=== PATIENT | female | born 1945 | race Caucasian/White ===

== ENCOUNTER 2017-05-24 06:01 | Inpatient (IN) ==
[2017-05-24] MEDS ORDERED: Aspirin 81 MG TAB.CHEW PO ONE (06:06)
--- NOTE | 2017-05-24 06:14 | Emergency Department Note ---
Disposition Clinical Impression: Confusion Disposition: Still a Patient Condition: Good Forms: ED Satisfaction Letter Time of Disposition: 07:14 Neuro HPI - General Chief Complaint: ED Neuro Symptoms/Deficit Stated Complaint: Possible TIA/Stroke Time Seen by Provider: 05/24/17 06:06 Source: patient, EMS Mode of arrival: EMS Limitations: no limitations Nursing Notes Reviewed: Yes Vital Signs Reviewed: Yes - History of Present Illness HPI Narrative: 71-year-old female presents to the ED for left-sided facial droop and confusion. EMS states has been said she was last known normal at 3:00 yesterday evening when she started acting a little confused after that. They noticed that she did have a little bit of facial droop at that time. She has had a history of having TIAs and then normally causes of facial droop. She is a type II diabetic and states that she is not taking her medications normally. EMS did say that her sugar was 546 upon arrival. stated that she woke up confused, wondering where she is at not acting normal and now is when he called EMS to come pick her up. She is complaining of no nausea or vomiting, headaches, blurry vision. She is complaining of back pain which is chronic for her. no abdominal pain or changes in bowel or bladder. She has no pain or tingling going down the arms or legs. No other complaints at this time. - Related Data Home Medications: Home Medications Medication Instructions Recorded Confirmed Bisoprolol Fumarate 07/07/15 Sachin Correia 12,000 Units Capsule 07/07/15 Gabapentin 07/07/15 Januvia 07/07/15 Levothyroxine 07/07/15 Losartan 07/07/15 Omeprazole 07/07/15 Plavix 07/07/15 Pramipexole 07/07/15 Pravastatin Sodium 07/07/15 TraMADol 07/07/15 Vitamin D 07/07/15 Previous Rx's Medication Instructions Recorded Hydrocodone/Acetaminophen [[place] 1 each PO Q4H PRN #10 tablet 09/15/15 5-325 Tablet] Ondansetron HCl [Zofran] 4 mg PO Q8HR #14 tablet 09/30/16 Azithromycin [Azithromycin 6-Tab 250 mg PO PER PKG DI #6 tab 04/12/17 Pack] Allergies/Adverse Reactions: Allergies Allergy/AdvReac Type Severity Reaction Status Date / Time simvastatin Allergy Itching Verified 05/24/17 06:02 Sulfa (Sulfonamide Allergy Rash Verified 05/24/17 06:02 Antibiotics) brimonidine [From Alphagan P] AdvReac Blurry Verified 05/24/17 06:02 Vision lisinopril [From Prinivil] AdvReac Cough Verified 05/24/17 06:02 Topical Iodine Allergy Rash Uncoded 05/24/17 06:02 Review of Systems: 10 point review of systems done and negative unless otherwise stated in history of present illness. All systems ED: reviewed and negative except as stated. Review of Systems: As Per HPI Past Medical History - Past Medical History Attestation: Yes The following information was validated with the patient. Medical history: Reports: other Surgical history: Reports: orthopedic, other (spinal surgery Mar, 2015; right foot surgery ) Psychiatric history: Reports: no psych history TYPIST history: Reports: no TYPIST history - Social History Smoking Status: Never smoker Smokeless Tobacco Status: No Alcohol use: Reports: none Drug use: Reports: none Physical Exam - General Limitations: no limitations General appearance: alert - Head Head exam: atraumatic, normocephalic, normal inspection - Eye Eye exam: Present: normal appearance, PERRL, EOMI - ENT ENT exam: normal exam, normal oropharynx, mucous membranes moist - Neck Neck exam: Present: normal inspection, full ROM, trachea midline - Chest Chest inspection: Present: normal inspection, symmetric chest wall rise - Respiratory Respiratory exam: Present: normal lung sounds bilaterally - Cardiovascular Cardiovascular exam: Present: regular rate, normal rhythm, normal heart sounds - Abdominal Exam Abdominal exam: Present: soft, Non-Tender. Absent: tenderness, distention, guarding, rebound, rigidity - Back Exam Back exam: Present: normal inspection. Absent: tenderness - Neurological Exam Neurological exam: Present: alert - Expanded Neurological Exam Patient oriented to: Absent: person, place, time Speech: Present: fluid speech Motor strength - LUE: 5/5 Motor strength - RUE: 3/5 Motor strength - LLE: 5/5 Motor strength - RLE: 5/5 Sensory exam upper extremity: light touch: Normal Sensory exam lower extremity: light touch: Normal Coma Scale Eye Opening: Spontaneous Coma Scale Motor Response: Localizes to Pain Coma Scale Verbal Response: Confused Coma Scale Total: 13 - Psychiatric Psychiatric exam: Present: normal affect, normal mood - Skin Skin exam: Present: warm, dry, intact, normal color Course Course Narrative: 71-year-old female here from home via EMS for strokelike symptoms. Her last known normal was 3:00 yesterday afternoon and she woke up feeling confused so there is no timeframe that we can call a stroke alert. We will do all the stroke workup including CT of her head, CBC, CMP, blood glucose. A urinalysis on her. We had chest x-ray as well as troponin. We did EKG. Would not have an IV placed. Patient most likely than be admitted for further evaluation. Vital Signs Temperature 98.0 F 05/24/17 06:02 Pulse Rate 73 05/24/17 06:02 Respiratory Rate 20 05/24/17 06:02 Blood Pressure 140/85 05/24/17 06:02 O2 Sat by Pulse Oximetry 96 05/24/17 06:02 Temperature 98.0 F 05/24/17 06:02 Pulse Rate 73 05/24/17 06:02 Respiratory Rate 20 05/24/17 06:02 Blood Pressure 140/85 05/24/17 06:02 O2 Sat by Pulse Oximetry 96 05/24/17 06:02 Oxygen Delivery Oxygen Delivery Room Air Neuro Symptoms/Deficit - MDM Narrative Medical decision making narrative: 71-year-old female presented to the ED with strokelike symptoms. Her last normal was 3:00 yesterday afternoon. She woke up with confusion and these symptoms. So there is no known sick time of onset. We did not do a stroke alert. We did though order all the stroke labs including CBC, CMP, coags as well as a CT of her head. We also got a urine and urine drug screen. These are still pending. Patient's NIH was 5. This patient will be signed out to the day team as the labs and CT of not came back yet. NIH Stroke Scale - Level of Consciousness LOC: Alert - LOC Questions LOC Questions: Answers both incorrectly - LOC Commands LOC Commands: Performs both incorrectly - Best Gaze Best Gaze: Normal - Visual Visual: No visual loss - Facial Palsy Facial Palsy: Normal - Motor Arms Motor Arm-Left: No drift for 10 seconds Motor Arm-Right: Drift, does NOT hit bed - Motor Legs Motor Leg-Left: No drift for 5 seconds Motor Leg-Right: No drift for 5 seconds - Limb Ataxia Limb Ataxia: Absent of affected limb too weak to perform exam - Sensory Sensory: Normal - Best Language Best Language: No aphasia - Dysarthria Dysarthria: Normal - Extinction and Inattention Extinction and Inattention: Normal - NIHSS Total Score NIHSS Total Score: 5 TPA Checklist - LKW: 3-4.5 hrs Add. Warnings/Precautions Patient/family understanding: The patient/family members have been counseled and understood the risk, benefit , and alternatives of treatment. Critical Care Time Critical Care Time: Yes Total Critical Care Time: 35 Attestation: Critical care performed: Time is exclusive of separately billable procedures. Time includes: direct patient care, patient reassessment, coordination of patient care, interpretation of data (laboratory data, radiology data, and respiratory data), review of patient's medical records, medical consultation and documentation of patient care. Procedures included in critical care time: Procedures excluded from critical care time: Attestation Statement - Attestation Attestation: I, Gatito Liang DO, examined this patient [id number] and my medical decision-making was reviewed with Dr. Severino Vigil Resident Physician. I agree with the documented findings, disposition and treatment plan as described except to the extent set forth below. Please see my progress notes for details. 71-year-old female presents to emergency room with left-sided facial droop started yesterday afternoon. Patient has a history of TIAs this is similar to her previous TIA presentation. Patient woke up this morning with significant confusion after sleeping for multiple hours. Family is not with her initially. All information is presented by EMS. Vital signs Accu-Chek were all stable during transit. Patient is confused to time and place and is unable to tell us her full name at this point. Neurologically patient follows commands and moves all 4 extremities with purpose she is confused as normal-appearing pupils are equal and reactive to light. She has difficulty with specific motor function testing at this point. Based on timeframe as well as presentation and waking with progression of symptoms patient is on a candidate for acute stroke activation and protocol. Patient will be treated as such. Urinalysis urine drug screen, EKG troponin chest x-ray CT of the head as well as screening laboratory workup be completed at this point. Patient almost 71 admission. Aspirin to be given at this point. Consultation to be had with the family once they arrive. Patient otherwise is resting comfortably in the bed but no specific vital sign abnormalities. Disposition admission. See detailed documentation of physical exam, medical intervention, medical decision-making, critical care and disposition and the resident physician's note. Physical exam is otherwise unremarkable. Lungs are clear heart is regular abdomen is soft no guarding no rigidity. No infectious etiology noted on initial presentation. Patient will be monitored in the emergency room and admission process and treatment course are completed. She will be signed out to the daytime physician for completion of the course of care.
[2017-05-24 07:19] LABS: INR 1.1; Prothrombin Time 12.1 Seconds (9.4-12.1)
[2017-05-24] MEDS ORDERED: *HR* FentaNYL (PF) 100 MCG/2 ML VIAL IVP ONE ×2 (07:19→10:27)
[2017-05-24 07:21] LABS: Activated Partial Thrombo Time 22.6 Seconds (26.0-36.0)
[2017-05-24 07:25] LABS: Eosinophils % 0.2 %; Hemoglobin 13.5 g/dL (11.5-15.4); Mean Platelet Volume 13.3 fL (9.4-12.4); Red Cell Distribution Width 13.2 % (11.5-14.5)
[2017-05-24 07:27] LABS: Basophils # 0.1 K/mcL (0.0-0.2); Basophils % 0.4 %; Hematocrit 37.9 % (35.3-44.9); Immature Granulocytes % 0.5 % (0-4); Immature Platelets 22.9 % (1.1-6.1); Lymphocytes # 3.4 K/mcL (0.6-4.6); Mean Corpuscular HGB Conc 35.6 g/dL (31.6-35.5); Mean Corpuscular Hemoglobin 31.8 pg (28.0-33.3); Mean Corpuscular Volume 89.2 fL (83.0-100.0); Monocytes # 1.2 K/mcL (0.0-1.3); Monocytes % 7.3 %; Neutrophils # 11.5 K/mcL (1.6-8.9); Platelet Count 190 K/mcL (140-400); Red Blood Count 4.25 M/mcL (3.82-4.97); Segmented Neutrophils % 70.6 %
--- NOTE | 2017-05-24 07:41 | Emergency Department Note ---
Disposition Clinical Impression: Confusion, Hyperglycemia, MALIK (acute kidney injury) Disposition: Still a Patient Condition: Good General Adult HPI - General Chief complaint: ED Neuro Symptoms/Deficit Stated complaint: Possible TIA/Stroke Time Seen by Provider: 05/24/17 06:06 Source: patient, EMS Mode of arrival: EMS Limitations: no limitations - History of Present Illness Pain Scale: 0 - Related Data Home Medications Medication Instructions Recorded Confirmed Bisoprolol/HCTZ [Ziac 1 each PO DAILY 05/24/17 05/24/1725] Clopidogrel [Plavix] 75 mg PO DAILY 05/24/17 05/24/17 Dicyclomine [Bentyl] 20 mg PO QID 05/24/17 05/24/17 Gabapentin [Neurontin] 600 mg PO BID 05/24/17 05/24/17 Levothyroxine [Synthroid] 150 mcg PO DAILY 05/24/17 05/24/17 Losartan Potassium [Cozaar] 50 mg PO DAILY 05/24/17 05/24/17 Omeprazole [PriLOSEC] 40 mg PO DAILY 05/24/17 05/24/17 Pramipexole [Mirapex] 0.5 mg PO HS 05/24/17 05/24/17 Pravastatin Sodium [Pravachol] 40 mg PO QPM 05/24/17 05/24/17 SitaGLIPtin [Januvia] 100 mg PO DAILY 05/24/17 05/24/17 Allergies Allergy/AdvReac Type Severity Reaction Status Date / Time simvastatin Allergy Itching Verified 05/24/17 06:02 Sulfa (Sulfonamide Allergy Rash Verified 05/24/17 06:02 Antibiotics) brimonidine [From Alphagan P] AdvReac Blurry Verified 05/24/17 06:02 Vision lisinopril [From Prinivil] AdvReac Cough Verified 05/24/17 06:02 Topical Iodine Allergy Rash Uncoded 05/24/17 06:02 Past Medical History - Past Medical History Medical history: Reports: other Surgical history: Reports: orthopedic, other (spinal surgery Mar, 2015; right foot surgery ) Psychiatric history: Reports: no psych history [employer] history: Reports: no [employer] history - Social History Smoking Status: Never smoker Smokeless Tobacco Status: No Alcohol use: Reports: none Drug use: Reports: none Physical Exam - General Limitations: no limitations General appearance: alert Course Course Narrative: Assumed care for the night team. I was able to speak with the who reports that his has a past medical history of TIA, hypertension, diabetes , chronic low back pain. She also had pancreatic cancer back in the 90s and has completely recovered. He reports that yesterday around noon she started to develop confusion. Her normal baseline is no confusion and she is able to maintain her own activities of daily living. 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 Since yesterday she has been progressively more confused to the point where she does not appropriately answer questions. On my examination she is alert but does not give appropriate answers. She will speak occasionally. She does have some mild abdominal pain on exam swell go ahead and order a CT scan to look for a abdominal etiology. She became substantially more confused as we were continuing the workup in the emergency department. She was trying to climb out of bed and was speaking nonsensically. Trying to pull out IV's. For her safety she required some sedation. I spoke with the hospitalist who recommended ICU due to the substantial sedation that she is needing. I spoke with the ICU attending who agreed to accept the patient. I did call neurology who also agreed to see the patient. They recommended a lumbar puncture the patient was unable to cooperate for this and she has a large scar over the lower lumbar consistent with a fusion. We did empirically start her on acyclovir in case this is caused by herpes encephalitis. Vital Signs Temperature 98.0 F 05/24/17 06:02 Pulse Rate 73 05/24/17 06:02 Respiratory Rate 20 05/24/17 06:02 Blood Pressure 140/85 05/24/17 06:02 O2 Sat by Pulse Oximetry 96 05/24/17 06:02 Temperature 100.5 F H 05/24/17 13:02 Pulse Rate 73 05/24/17 14:00 Respiratory Rate 18 05/24/17 14:00 Blood Pressure 108/51 05/24/17 14:00 O2 Sat by Pulse Oximetry 94 05/24/17 14:00 Oxygen Delivery Oxygen Delivery Nasal Cannula Medical Decision Making - Medical Records Medical records reviewed: Yes I reviewed the patient's medical records. - Lab Data Lab results reviewed: Yes I reviewed the patient's lab results. Result diagrams: 05/24/17 14:08 05/24/17 14:08 Lab Results 05/24/17 05/24/17 05/24/17 Range/Units 07:07 07:22 07:22 WBC 16.3 H (4.3-11.1) K/mcL RBC 4.25 (3.82-4.97) M/mcL Hgb 13.5 (11.5-15.4) g/dL Hct 37.9 (35.3-44.9) % MCV 89.2 (83.0-100.0) fL MCH 31.8 (28.0-33.3) pg MCHC 35.6 H (31.6-35.5) g/dL RDW 13.2 (11.5-14.5) % Plt Count 190 (140-400) K/mcL MPV 13.3 H (9.4-12.4) fL Immature Gran % 0.5 (0-4) % Seg Neutrophils % 70.6 % Lymphocytes % 21.0 % Monocytes % 7.3 % Eosinophils % 0.2 % Basophils % 0.4 % Neutrophils # 11.5 H (1.6-8.9) K/mcL Lymphocytes # 3.4 (0.6-4.6) K/mcL Monocytes # 1.2 (0.0-1.3) K/mcL Eosinophils # 0.0 (0.0-0.6) K/mcL Basophils # 0.1 (0.0-0.2) K/mcL Immature Plt Fraction 22.9 H (1.1-6.1) % PT 12.1 (9.4-12.1) Seconds INR 1.1 APTT 22.6 L (26.0-36.0) Seconds VBG pH (7.32-7.42) pH Units VBG pCO2 (41-51) mmHg VBG pO2 (25-50) mmHg VBG HCO3 (21-27) mEq/L Carboxyhemoglobin (0-5) % Sodium 124 L (136-145) mEq/L Potassium 4.8 H (3.5-4.5) mEq/L Chloride 88 L (98-109) mEq/L Carbon Dioxide 21 (19-29) mEq/L BUN 25 H (7-20) mg/dL Creatinine 1.68 H (0.57-1.11) mg/dL Est GFR ( Amer) 37 L (> 60) Est GFR (Non-Af Amer) 30 L (> 60) BUN/Creatinine Ratio 15 (6-26) Glucose 565 H* (70-99) mg/dL Calculated Osmolality 288 (280-300) Calcium 9.2 (8.6-10.8) mg/dL Total Bilirubin 0.9 (0.2-1.2) mg/dL Direct Bilirubin 0.3 (0.0-0.5) mg/dL Indirect Bilirubin 0.6 (0.0-1.2) mg/dL AST 49 H (5-34) Units/L ALT 53 (0-55) Units/L Alkaline Phosphatase 112 (38-126) Units/L Ammonia (18-72) mcmol/L Troponin I (0-0.03) ng/mL Serum Total Protein 7.8 (6.0-8.3) g/dL Albumin 3.1 L (3.5-5.0) g/dL Globulin 4.7 H (2.4-3.5) g/dL Albumin/Globulin Ratio 0.7 L (1.1-2.2) Beta-Hydroxybutyric Acd (0.02-0.27) mmol/L Urine Color (Yellow) Urine Clarity (Clear) Urine pH (5.0-8.0) pH Units Ur Specific [place] (1.010-1.025) Urine Protein (Neg-Trace) mg/dL Urine Glucose (UA) (Normal) mg/dL Urine Ketones (Negative) mg/dL Urine Blood (Negative) Urine Nitrite (Negative) Urine Bilirubin (Negative) Urine Urobilinogen (Normal) mg/dL Ur Leukocyte Esterase (Negative) Urine Microscopic RBC (0-3) per hpf Urine Microscopic WBC (0-3) per hpf Ur Squamous Epith Cells (None-Few) per lpf Urine Bacteria (None-Few) per hpf Hyaline Casts (None-Few) per lpf Ur Culture Indicated? (NO) Urine Opiates Screen (Qlsmbe=496) ng/mL Ur Barbiturates Screen (Znxssv=579) ng/mL Ur Phencyclidine Scrn (Cutoff=25) ng/mL Ur Amphetamines Screen (Mbtzyz=2954) ng/mL U Benzodiazepines Scrn (Qqttni=370) ng/mL Urine Cocaine Screen (Cutoff= 300) ng/mL U Marijuana (THC) Screen (Cutoff = 50) ng/mL Ethyl Alcohol (0-10) mg/dL Specimen Rejected 05/24/17 05/24/17 05/24/17 Range/Units 07:22 08:24 08:24 WBC (4.3-11.1) K/mcL RBC (3.82-4.97) M/mcL Hgb (11.5-15.4) g/dL Hct (35.3-44.9) % MCV (83.0-100.0) fL MCH (28.0-33.3) pg MCHC (31.6-35.5) g/dL RDW (11.5-14.5) % Plt Count (140-400) K/mcL MPV (9.4-12.4) fL Immature Gran % (0-4) % Seg Neutrophils % % Lymphocytes % % Monocytes % % Eosinophils % % Basophils % % Neutrophils # (1.6-8.9) K/mcL Lymphocytes # (0.6-4.6) K/mcL Monocytes # (0.0-1.3) K/mcL Eosinophils # (0.0-0.6) K/mcL Basophils # (0.0-0.2) K/mcL Immature Plt Fraction (1.1-6.1) % PT (9.4-12.1) Seconds INR APTT (26.0-36.0) Seconds VBG pH (7.32-7.42) pH Units VBG pCO2 (41-51) mmHg VBG pO2 (25-50) mmHg VBG HCO3 (21-27) mEq/L Carboxyhemoglobin (0-5) % Sodium (136-145) mEq/L Potassium (3.5-4.5) mEq/L Chloride (98-109) mEq/L Carbon Dioxide (19-29) mEq/L BUN (7-20) mg/dL Creatinine (0.57-1.11) mg/dL Est GFR ( Amer) (> 60) Est GFR (Non-Af Amer) (> 60) BUN/Creatinine Ratio (6-26) Glucose (70-99) mg/dL Calculated Osmolality (280-300) Calcium (8.6-10.8) mg/dL Total Bilirubin (0.2-1.2) mg/dL Direct Bilirubin (0.0-0.5) mg/dL Indirect Bilirubin (0.0-1.2) mg/dL AST (5-34) Units/L ALT (0-55) Units/L Alkaline Phosphatase (38-126) Units/L Ammonia 32 (18-72) mcmol/L Troponin I 0.01 (0-0.03) ng/mL Serum Total Protein (6.0-8.3) g/dL Albumin (3.5-5.0) g/dL Globulin (2.4-3.5) g/dL Albumin/Globulin Ratio (1.1-2.2) Beta-Hydroxybutyric Acd (0.02-0.27) mmol/L Urine Color (Yellow) Urine Clarity (Clear) Urine pH (5.0-8.0) pH Units Ur Specific [place] (1.010-1.025) Urine Protein (Neg-Trace) mg/dL Urine Glucose (UA) (Normal) mg/dL Urine Ketones (Negative) mg/dL Urine Blood (Negative) Urine Nitrite (Negative) Urine Bilirubin (Negative) Urine Urobilinogen (Normal) mg/dL Ur Leukocyte Esterase (Negative) Urine Microscopic RBC (0-3) per hpf Urine Microscopic WBC (0-3) per hpf Ur Squamous Epith Cells (None-Few) per lpf Urine Bacteria (None-Few) per hpf Hyaline Casts (None-Few) per lpf Ur Culture Indicated? (NO) Urine Opiates Screen (Isdpln=167) ng/mL Ur Barbiturates Screen (Ailjjq=541) ng/mL Ur Phencyclidine Scrn (Cutoff=25) ng/mL Ur Amphetamines Screen (Jwybfo=3613) ng/mL U Benzodiazepines Scrn (Sqwjhx=213) ng/mL Urine Cocaine Screen (Cutoff= 300) ng/mL U Marijuana (THC) Screen (Cutoff = 50) ng/mL Ethyl Alcohol (0-10) mg/dL Specimen Rejected Volume 05/24/17 05/24/17 05/24/17 Range/Units 08:24 08:24 08:34 WBC (4.3-11.1) K/mcL RBC (3.82-4.97) M/mcL Hgb (11.5-15.4) g/dL Hct (35.3-44.9) % MCV (83.0-100.0) fL MCH (28.0-33.3) pg MCHC (31.6-35.5) g/dL RDW (11.5-14.5) % Plt Count (140-400) K/mcL MPV (9.4-12.4) fL Immature Gran % (0-4) % Seg Neutrophils % % Lymphocytes % % Monocytes % % Eosinophils % % Basophils % % Neutrophils # (1.6-8.9) K/mcL Lymphocytes # (0.6-4.6) K/mcL Monocytes # (0.0-1.3) K/mcL Eosinophils # (0.0-0.6) K/mcL Basophils # (0.0-0.2) K/mcL Immature Plt Fraction (1.1-6.1) % PT (9.4-12.1) Seconds INR APTT (26.0-36.0) Seconds VBG pH 7.48 H (7.32-7.42) pH Units VBG pCO2 34 L (41-51) mmHg VBG pO2 56 H (25-50) mmHg VBG HCO3 25 (21-27) mEq/L Carboxyhemoglobin 3.7 (0-5) % Sodium (136-145) mEq/L Potassium (3.5-4.5) mEq/L Chloride (98-109) mEq/L Carbon Dioxide (19-29) mEq/L BUN (7-20) mg/dL Creatinine (0.57-1.11) mg/dL Est GFR ( Amer) (> 60) Est GFR (Non-Af Amer) (> 60) BUN/Creatinine Ratio (6-26) Glucose (70-99) mg/dL Calculated Osmolality (280-300) Calcium (8.6-10.8) mg/dL Total Bilirubin (0.2-1.2) mg/dL Direct Bilirubin (0.0-0.5) mg/dL Indirect Bilirubin (0.0-1.2) mg/dL AST (5-34) Units/L ALT (0-55) Units/L Alkaline Phosphatase (38-126) Units/L Ammonia (18-72) mcmol/L Troponin I (0-0.03) ng/mL Serum Total Protein (6.0-8.3) g/dL Albumin (3.5-5.0) g/dL Globulin (2.4-3.5) g/dL Albumin/Globulin Ratio (1.1-2.2) Beta-Hydroxybutyric Acd 0.30 H (0.02-0.27) mmol/L Urine Color (Yellow) Urine Clarity (Clear) Urine pH (5.0-8.0) pH Units Ur Specific [place] (1.010-1.025) Urine Protein (Neg-Trace) mg/dL Urine Glucose (UA) (Normal) mg/dL Urine Ketones (Negative) mg/dL Urine Blood (Negative) Urine Nitrite (Negative) Urine Bilirubin (Negative) Urine Urobilinogen (Normal) mg/dL Ur Leukocyte Esterase (Negative) Urine Microscopic RBC (0-3) per hpf Urine Microscopic WBC (0-3) per hpf Ur Squamous Epith Cells (None-Few) per lpf Urine Bacteria (None-Few) per hpf Hyaline Casts (None-Few) per lpf Ur Culture Indicated? (NO) Urine Opiates Screen (Nqmhix=432) ng/mL Ur Barbiturates Screen (Gjlohg=205) ng/mL Ur Phencyclidine Scrn (Cutoff=25) ng/mL Ur Amphetamines Screen (Uxsmfe=8653) ng/mL U Benzodiazepines Scrn (Vlkevc=805) ng/mL Urine Cocaine Screen (Cutoff= 300) ng/mL U Marijuana (THC) Screen (Cutoff = 50) ng/mL Ethyl Alcohol < 10 (0-10) mg/dL Specimen Rejected 05/24/17 05/24/17 Range/Units 09:15 09:21 WBC (4.3-11.1) K/mcL RBC (3.82-4.97) M/mcL Hgb (11.5-15.4) g/dL Hct (35.3-44.9) % MCV (83.0-100.0) fL MCH (28.0-33.3) pg MCHC (31.6-35.5) g/dL RDW (11.5-14.5) % Plt Count (140-400) K/mcL MPV (9.4-12.4) fL Immature Gran % (0-4) % Seg Neutrophils % % Lymphocytes % % Monocytes % % Eosinophils % % Basophils % % Neutrophils # (1.6-8.9) K/mcL Lymphocytes # (0.6-4.6) K/mcL Monocytes # (0.0-1.3) K/mcL Eosinophils # (0.0-0.6) K/mcL Basophils # (0.0-0.2) K/mcL Immature Plt Fraction (1.1-6.1) % PT (9.4-12.1) Seconds INR APTT (26.0-36.0) Seconds VBG pH (7.32-7.42) pH Units VBG pCO2 (41-51) mmHg VBG pO2 (25-50) mmHg VBG HCO3 (21-27) mEq/L Carboxyhemoglobin (0-5) % Sodium (136-145) mEq/L Potassium (3.5-4.5) mEq/L Chloride (98-109) mEq/L Carbon Dioxide (19-29) mEq/L BUN (7-20) mg/dL Creatinine (0.57-1.11) mg/dL Est GFR ( Amer) (> 60) Est GFR (Non-Af Amer) (> 60) BUN/Creatinine Ratio (6-26) Glucose (70-99) mg/dL Calculated Osmolality (280-300) Calcium (8.6-10.8) mg/dL Total Bilirubin (0.2-1.2) mg/dL Direct Bilirubin (0.0-0.5) mg/dL Indirect Bilirubin (0.0-1.2) mg/dL AST (5-34) Units/L ALT (0-55) Units/L Alkaline Phosphatase (38-126) Units/L Ammonia (18-72) mcmol/L Troponin I (0-0.03) ng/mL Serum Total Protein (6.0-8.3) g/dL Albumin (3.5-5.0) g/dL Globulin (2.4-3.5) g/dL Albumin/Globulin Ratio (1.1-2.2) Beta-Hydroxybutyric Acd (0.02-0.27) mmol/L Urine Color Yellow (Yellow) Urine Clarity Clear (Clear) Urine pH 6.0 (5.0-8.0) pH Units Ur Specific [place] > 1.030 H (1.010-1.025) Urine Protein 30 H (Neg-Trace) mg/dL Urine Glucose (UA) >=1000 H (Normal) mg/dL Urine Ketones Trace H (Negative) mg/dL Urine Blood Negative (Negative) Urine Nitrite Negative (Negative) Urine Bilirubin Small H (Negative) Urine Urobilinogen Normal (Normal) mg/dL Ur Leukocyte Esterase Negative (Negative) Urine Microscopic RBC 0-3 (0-3) per hpf Urine Microscopic WBC 3-5 H (0-3) per hpf Ur Squamous Epith Cells Few (None-Few) per lpf Urine Bacteria Few (None-Few) per hpf Hyaline Casts Few (None-Few) per lpf Ur Culture Indicated? NO (NO) Urine Opiates Screen Positive H (Qmljkz=169) ng/mL Ur Barbiturates Screen Negative (Xwtlud=688) ng/mL Ur Phencyclidine Scrn Negative (Cutoff=25) ng/mL Ur Amphetamines Screen Negative (Eelcyo=3099) ng/mL U Benzodiazepines Scrn Negative (Zivfqq=506) ng/mL Urine Cocaine Screen Negative (Cutoff= 300) ng/mL U Marijuana (THC) Screen Negative (Cutoff = 50) ng/mL Ethyl Alcohol (0-10) mg/dL Specimen Rejected - Radiology Data Radiology results reviewed: Yes I reviewed the patient's radiology results. Critical Care Time Critical Care Time: Yes Total Critical Care Time: 95 Attestation: Critical care time 95 minutes. Attestation Statement - Attestation Attestation: Patient was seen with resident physician. I reviewed the history, physical, assessment and plan, and agree with the findings. I also personally evaluated this patient and had [id number] time with this patient. 8-year-old female who was signed out to me by the night patrol inspector team with a chief complaint of mental status change. Patient started with confusion approximately a day and a half to 2 days ago. She has had a history of TIAs and they were thinking it would resolve, but today was worse. This prompted a visit to the ED. Patient' s unable to provide any history herself. On exam Eitel signs were stable. ENT is unremarkable. Heart regular rhythm rate. Lungs clear. Abdomen is soft patient grown slightly with palpation diffusely. Extremities do not show any signs of traumatic injury. Neurologically patient moves all extremities but is unable to answer questions making neurologic exam difficult. ED course CT scan did not reveal any significant abnormalities. Patient had multiple electrolyte abnormalities. She became very agitated through the course of her stay requiring multiple doses of Haldol and Ativan. Patient did not meet the criteria window for stroke alert, I think a lot of her symptoms are likely metabolic related. She will require hospitalization for further evaluation and treatment. Hospitalist came and evaluated the patient and there was concern because the patient's required so much sedation in order to remain calm that she may need to be in the intensive care unit. We did speak with the newspaper editor managing about this as well who agreed to accept the patient. They requested contacting neurology. We did contact neurology and we discussed starting antibiotics and a lumbar puncture. Though I felt initially the patient would require intubation prior to LP through her stay she calmed down considerably was actually in a relatively good position to attempt the procedure. In coordination with the newspaper editor managing, I agreed to attempt an LP. However when we went to do the LP we found her surgical scar and anatomically what felt like a fusion, which had not been explained to us from her but apparently secondary to surgery for her spinal stenosis. With her being on Plavix and having surgically altered anatomy, and no definitive landmarks in the lumbar spine with which to proceed, I was uncomfortable attempting this procedure. I felt the better option at this point was to continue her empiric treatment and to continue with transfer to the intensive care unit with possible interventional radiology and/or neurology assistance. This is ultimately what we opted to do. Patient will be started on acyclovir per neurology's request, and antibiotics per the newspaper editor managing request she will be taken to the intensive care unit for further evaluation and treatment. I did speak several times the newspaper editor managing and the neurologist to try and update them on what we were and were not able to do here in the emergency department based on patient's anatomy and condition. Critical care time 1 hour 35 minutes. Agree with the resident physician assessment and plan.
[2017-05-24] MEDS ORDERED: Haloperidol Lactate 5 MG/ML VIAL IVP ONE ×2 (07:42→08:28)
[2017-05-24 07:47] LABS: Calcium 9.2 mg/dL (8.6-10.8)
[2017-05-24 07:49] LABS: Potassium 4.8 mEq/L (3.5-4.5)
[2017-05-24] MEDS ORDERED: *HR* LORazepam 2 MG/ML VIAL IVP ONE ×2 (07:50→08:28)
[2017-05-24] MEDS ORDERED: 0.9 % Sodium Chloride 1,000 ML IVC ONE ×2 (07:51→07:52)
[2017-05-24 08:04] LABS: Albumin 3.1 g/dL (3.5-5.0); Albumin/Globulin Ratio 0.7 (1.1-2.2); Bilirubin,Direct 0.3 mg/dL (0.0-0.5); Bilirubin,Indirect 0.6 mg/dL (0.0-1.2); Bilirubin,Total 0.9 mg/dL (0.2-1.2); Globulin 4.7 g/dL (2.4-3.5); Total Protein 7.8 g/dL (6.0-8.3)
[2017-05-24 08:38] LABS: VBG HCO3 25 mEq/L (21-27); VBG PCO2 34 mmHg (41-51); VBG PH 7.48 pH Units (7.32-7.42); VBG PO2 56 mmHg (25-50)
[2017-05-24 08:44] LABS: Ethanol < 10 mg/dL (0-10)
[2017-05-24 09:28] LABS: Bilirubin,Urine Small (Negative); Blood,Urine Negative (Negative); Clarity,Urine Clear (Clear); Color,Urine Yellow (Yellow); Glucose,Urine (UA) >=1000 mg/dL (Normal); Ketones,Urine Trace mg/dL (Negative); Leukocyte Esterase,Urine Negative (Negative); Nitrite,Urine Negative (Negative); Protein,Urine 30 mg/dL (Neg-Trace); Specific Gravity,Urine > 1.030 (1.010-1.025); Urobilinogen,Urine Normal (Normal)
[2017-05-24 09:33] LABS: Hyaline Casts,Urine Few per lpf (None-Few)
[2017-05-24 09:35] LABS: Amphetamine Screen,Urine Negative ng/mL (Cutoff=1000); Barbiturate Screen,Urine Negative ng/mL (Cutoff=200); Benzodiazepines Screen,Urine Negative ng/mL (Cutoff=200); Cannabinoid Screen,Urine Negative ng/mL (Cutoff = 50); Cocaine Screen,Urine Negative ng/mL (Cutoff= 300); Opiate Screen,Urine Positive ng/mL (Cutoff=300); Phencyclidine Screen,Urine Negative ng/mL (Cutoff=25)
[2017-05-24] MEDS ORDERED: Insulin Regular, Human 100 UNIT/ML SQ ONE (09:45)
[2017-05-24 09:47] LABS: RBC,Urine 0-3 per hpf (0-3); Squamous Epithelial Cell,Urine Few per lpf (None-Few)
[2017-05-24 09:48] LABS: Bacteria,Urine Few per hpf (None-Few)
[2017-05-24] MEDS ORDERED: ACYCLOVIR IVPB ONE (11:36)
[2017-05-24] MEDS ORDERED: WATER IVPB ONE (11:36)
[2017-05-24] MEDS ORDERED: D5 IVPB ONE (11:36)
[2017-05-24] MEDS ORDERED: Ampicillin 2 GM in 0.9 % Sodium Chloride Mini Bag 100 ML IVPB ONE (11:53)
[2017-05-24] MEDS ORDERED: 0.9 % Sodium Chloride 1,000 ML ONE (12:06)
[2017-05-24] MEDS: Dexmedetomidine HCl 400 MCG/100 ML MLS IVC SCH ×2 (13:13→20:10)
[2017-05-24] MEDS ORDERED: Thiamine (B-1) 100 MG in D5% in Water 50 ML IVPB STA (13:24)
[2017-05-24] MEDS ORDERED: Folic Acid 1 MG in D5% in Water 50 ML IVPB STA (13:24)
[2017-05-24] MEDS ORDERED: Naloxone 0.4 MG/ML INJ IVP PRN (13:25)
--- NOTE | 2017-05-24 13:54 | Pulmonology History & Physical ---
<Javier Ornelas - Last Filed: 05/24/17 14:41> Date of Encounter: 05/24/17 Time of Encounter: 13:52 Assessment and Plan (1) Acute encephalopathy Current visit: Yes Status: Acute At this point the etiology is unclear, differential includes infectious causes as well as ingestions or metabolic derangement. At this point we have been unable to obtain a lumbar puncture due to the fact that the patient has a fused lumbar spine and is on Plavix. We have started her on empiric therapy for encephalitis including Rocephin, ampicillin, and acyclovir. Patient was also acutely hyperglycemic upon presentation to the emergency department and had a recent course of steroids so hyperglycemia and steroid-induced psychosis is considered. Ingestions cannot be ruled out. Patient is positive for opiates however review of her outpatient records and order report shows that she is not prescribed chronic pain medication. Head CT performed in the emergency department was negative. We will attempt to take obtain an MRI if the patient is able to cooperate enough to obtain imaging. Patient received 3 L of IV fluid bolus in the emergency department. Patient was given 10 units of insulin subcutaneous in the emergency department and on recheck her sugar was in the 280s. Complete panel of repeat labs are pending. Agitation has improved with Precedex. We will consult neurology (2) Type 2 diabetes mellitus Current visit: Yes Status: Acute With hyperglycemia, possibly contributing to her acute encephalopathy as discussed above. [place] subcutaneous insulin regimen to slowly improve her glycemic control. We will check a hemoglobin A1c. Hold home diabetic medications Qualifiers: Diabetes mellitus complication status: with hyperglycemia Diabetes mellitus mcc insulin use: without superintendent [employer] use Qualified Code(s): E11.65 - Type 2 diabetes mellitus with hyperglycemia (3) MALIK (acute kidney injury) Current visit: Yes Status: Acute Likely prerenal in the setting of hyperglycemia resulting in dehydration. Patient received significant fluid hydration with 3 L bolus in the emergency department. We will continue maintenance fluid at 125 mL per hour. Patient has had excellent urine output. Continue to monitor renal function. (4) Lactic acidosis Current visit: Yes Status: Acute Patient has significant lactic acid, 4.0. Possibly related to underlying infection. Patient has received 30 mL/kg of IV fluids in the emergency department. Blood pressure is been stable. Antibiotics have been initiated. Blood cultures have been drawn. Repeat lactate in 6 hours. (5) Hypertension Current visit: Yes Status: Acute Blood pressure has been under good control. Hold home medications at this time. Qualifiers: Hypertension type: essential hypertension Qualified Code(s): I10 - Essential (primary) hypertension History of Present Illness Chief complaint: Altered mental status HPI: Ms. Mosquera is a 71 year old female with history of diabetes, hypertension presents with altered mental status. Patient is acutely altered and cannot provide history. is at bedside and is able to give some information. He states that she had been in her normal state of health until about 11 AM yesterday morning when she began acting strangely. He states that she was attempting to walk up stairs that were not there and attempting to walk through amaya. She became gradually confused throughout the night and he brought in the emergency department this morning. He does state that she complained of a headache last night and approximately a month ago she had an episode where she thought she saw bugs that were not there. At the time of exam the patient is acutely altered, she is thrashing around in bed and tearing or close off. She is making unintelligible sounds and will not answer questions or follow commands. She does move all 4 extremities spontaneously. Past Med Surg Social Fam HX - Past Medical History Medical history: other Psychiatric history: no psych history - Past Surgical History Surgical History: orthopedic, other (spinal surgery Mar, 2015; right foot surgery ) - Social History Smoking Status: Never smoker Smokeless Tobacco Status: No Alcohol use: none Drug use: none - Family History Father Living Status: Cause of : [place] Hx Family Cardiac Disorders: Yes - Additional Family History Additional family history: Unable to obtain due to mental status. Medications and Allergies Bisoprolol/HCTZ 04/26.25 [Ziac 04/26.] 1 each PO DAILY 05/24/17 [History] Clopidogrel [Plavix] 75 mg PO DAILY 05/24/17 [History] Dicyclomine [Bentyl] 20 mg PO QID 05/24/17 [History] Gabapentin [Neurontin] 600 mg PO BID 05/24/17 [History] Levothyroxine [Synthroid] 150 mcg PO DAILY 05/24/17 [History] Losartan Potassium [Cozaar] 50 mg PO DAILY 05/24/17 [History] Omeprazole [PriLOSEC] 40 mg PO DAILY 05/24/17 [History] Pramipexole [Mirapex] 0.5 mg PO HS 05/24/17 [History] Pravastatin Sodium [Pravachol] 40 mg PO QPM 05/24/17 [History] SitaGLIPtin [Januvia] 100 mg PO DAILY 05/24/17 [History] 3 Allergy/AdvReac Type Severity Reaction Status Date / Time simvastatin Allergy Itching Verified 05/24/17 06:02 Sulfa (Sulfonamide Allergy Rash Verified 05/24/17 06:02 Antibiotics) brimonidine [From Alphagan P] AdvReac Blurry Verified 05/24/17 06:02 Vision lisinopril [From Prinivil] AdvReac Cough Verified 05/24/17 06:02 Topical Iodine Allergy Rash Uncoded 05/24/17 06:02 ROS unobtainable: due to mental status All Systems: A 10-system review of systems was performed and is negative for pertinent findings except as documented above in the HPI. Physical Examination Vital Signs: Vital Signs, Last 4 Hours Temp Pulse Resp BP Pulse Ox 05/24/17 13:30 75 22 129/69 93 05/24/17 13:16 96 05/24/17 13:02 100.5 F H 77 20 144/108 95 05/24/17 12:35 92 05/24/17 12:17 98.4 F 77 14 111/56 92 General appearance: agitated ENT: oropharynx dry Effort: normal Auscultation: bilateral: clear Cardiovascular: regular rate and rhythm Gastrointestinal: normoactive bowel sounds, soft, non-tender, non-distended Extremities: no cyanosis, no edema, no clubbing pupils equal and round, motor strength normal and symmetric, other (Patient is thrashing around in bed moving all 4 extremity spontaneously.) Results - Laboratory Findings CBC and BMP: 05/24/17 14:08 05/24/17 14:08 PT/INR, D-dimer PT 12.1 Seconds (9.4-12.1) 05/24/17 07:07 Abnormal lab findings: Abnormal lab results WBC 16.3 K/mcL (4.3-11.1) H 05/24/17 07:22 MCHC 35.6 g/dL (31.6-35.5) H 05/24/17 07:22 MPV 13.3 fL (9.4-12.4) H 05/24/17 07:22 Neutrophils # 11.5 K/mcL (1.6-8.9) H 05/24/17 07:22 Immature Plt Fraction 22.9 % (1.1-6.1) H 05/24/17 07:22 APTT 22.6 Seconds (26.0-36.0) L 05/24/17 07:07 VBG pH 7.48 pH Units (7.32-7.42) H 05/24/17 08:34 VBG pCO2 34 mmHg (41-51) L 05/24/17 08:34 VBG pO2 56 mmHg (25-50) H 05/24/17 08:34 Sodium 124 mEq/L (136-145) L 05/24/17 07:22 Potassium 4.8 mEq/L (3.5-4.5) H 05/24/17 07:22 Chloride 88 mEq/L (98-109) L 05/24/17 07:22 BUN 25 mg/dL (7-20) H 05/24/17 07:22 Creatinine 1.68 mg/dL (0.57-1.11) H 05/24/17 07:22 Est GFR ( Amer) 37 (> 60) L 05/24/17 07:22 Est GFR (Non-Af Amer) 30 (> 60) L 05/24/17 07:22 Glucose 565 mg/dL (70-99) H* 05/24/17 07:22 AST 49 Units/L (5-34) H 05/24/17 07:22 Albumin 3.1 g/dL (3.5-5.0) L 05/24/17 07:22 Globulin 4.7 g/dL (2.4-3.5) H 05/24/17 07:22 Albumin/Globulin Ratio 0.7 (1.1-2.2) L 05/24/17 07:22 Beta-Hydroxybutyric Acd 0.30 mmol/L (0.02-0.27) H 05/24/17 08:24 Ur Specific [place] > 1.030 (1.010-1.025) H 05/24/17 09:21 Urine Protein 30 mg/dL (Neg-Trace) H 05/24/17 09:21 Urine Glucose (UA) >=1000 mg/dL (Normal) H 05/24/17 09:21 Urine Ketones Trace mg/dL (Negative) H 05/24/17 09:21 Urine Bilirubin Small (Negative) H 05/24/17 09:21 Urine Microscopic WBC 3-5 per hpf (0-3) H 05/24/17 09:21 Urine Opiates Screen Positive ng/mL (Nkhrcx=349) H 05/24/17 09:15 <Geovanny Oseguera W - Last Filed: 05/24/17 15:00> Date of Encounter: 05/24/17 History of Present Illness HPI: Ms. Mosquera is a 71 year old female All Systems: A 10-system review of systems was performed and is negative for pertinent findings except as documented above in the HPI. Physical Examination Vital Signs: Vital Signs, Last 4 Hours Temp Pulse Resp BP Pulse Ox 05/24/17 14:00 73 18 108/51 94 05/24/17 13:30 75 22 129/69 93 05/24/17 13:16 96 05/24/17 13:02 100.5 F H 77 20 144/108 95 05/24/17 12:35 92 05/24/17 12:17 98.4 F 77 14 111/56 92 Results - Laboratory Findings CBC and BMP: 05/24/17 14:08 05/24/17 14:08 PT/INR, D-dimer PT 12.1 Seconds (9.4-12.1) 05/24/17 07:07 Abnormal lab findings: Abnormal lab results WBC 13.0 K/mcL (4.3-11.1) H 05/24/17 14:08 RBC 3.77 M/mcL (3.82-4.97) L 05/24/17 14:08 Hct 34.8 % (35.3-44.9) L 05/24/17 14:08 MPV 13.1 fL (9.4-12.4) H 05/24/17 14:08 Immature Plt Fraction 22.9 % (1.1-6.1) H 05/24/17 07:22 APTT 22.6 Seconds (26.0-36.0) L 05/24/17 07:07 VBG pH 7.48 pH Units (7.32-7.42) H 05/24/17 08:34 VBG pCO2 34 mmHg (41-51) L 05/24/17 08:34 VBG pO2 56 mmHg (25-50) H 05/24/17 08:34 Sodium 133 mEq/L (136-145) L D 05/24/17 14:08 Potassium 3.3 mEq/L (3.5-4.5) L D 05/24/17 14:08 Chloride 97 mEq/L (98-109) L 05/24/17 14:08 Creatinine 1.31 mg/dL (0.57-1.11) H 05/24/17 14:08 Est GFR ( Amer) 49 (> 60) L 05/24/17 14:08 Est GFR (Non-Af Amer) 40 (> 60) L 05/24/17 14:08 Glucose 279 mg/dL (70-99) H 05/24/17 14:08 Lactic Acid 4.0 mmol/L (0.5-2.2) H* 05/24/17 14:08 Calcium 7.9 mg/dL (8.6-10.8) L 05/24/17 14:08 Ionized Calcium 1.02 mmol/L (1.15-1.35) L 05/24/17 14:08 Phosphorus 1.5 mg/dL (2.3-4.7) L 05/24/17 14:08 Magnesium 1.0 mg/dL (1.6-2.6) L 05/24/17 14:08 AST 35 Units/L (5-34) H 05/24/17 14:08 Albumin 2.5 g/dL (3.5-5.0) L 05/24/17 14:08 Globulin 3.7 g/dL (2.4-3.5) H 05/24/17 14:08 Albumin/Globulin Ratio 0.7 (1.1-2.2) L 05/24/17 14:08 Beta-Hydroxybutyric Acd 0.30 mmol/L (0.02-0.27) H 05/24/17 08:24 Ur Specific [place] > 1.030 (1.010-1.025) H 05/24/17 09:21 Urine Protein 30 mg/dL (Neg-Trace) H 05/24/17 09:21 Urine Glucose (UA) >=1000 mg/dL (Normal) H 05/24/17 09:21 Urine Ketones Trace mg/dL (Negative) H 05/24/17 09:21 Urine Bilirubin Small (Negative) H 05/24/17 09:21 Urine Microscopic WBC 3-5 per hpf (0-3) H 05/24/17 09:21 Urine Opiates Screen Positive ng/mL (Ptsobc=863) H 05/24/17 09:15 - Attending Attestation I examined this patient and my medical decision-making was reviewed with the Resident Physician. I agree with the documented findings, disposition and treatment plan as described except to the extent set forth below. We independently had [id number] contact with the patient Patient seen and examined at bedside Labs, radiology, chart personally reviewed. Neuropsych: Acute encephalopathy likely metabolic derangements complicated by acute kidney injury and medication effect (gabapentin) versus meningeal encephalitis versus sepsis. Neurology has been consulted LP was attempted in ED was unsuccessful because of spinal fusion after history of spinal stenosis patient also is on Plavix making bleeding risk increase and giving thrashing movements the risk of performing this procedure at bedside given anatomical limitations is high. Nevertheless empiric antimicrobial therapy has been initiated. Neurology has been consulted and I discussed the case personally with the neurologist Dr. Dillon and he concurred with plan as outlined. Plan for MRI of head when less agitated. CT head without acute process although limitation due to motion artifact. Continue Precedex for agitation. Pulm: Mild hypoxemia that is resolved with 2 L nasal cannula no evidence of pneumonia on chest x-ray Cards: ECG without evidence of STEMI troponin negative blood pressure within normal limits we will continue to monitor FEN-GI: Nothing by mouth for now Renal: JAG with hyperosmolar state likely mediated by hyperglycemia and dehydration patient has received fluid resuscitation and this improved her renal function she has been started on acyclovir for encephalitis and we will monitor her electrolytes and serum creatinine twice daily continue crystalloid infusion while on acyclovir ID: Severe sepsis unclear etiology possibly related to ALGEBRAIST infection alternatively elevated lactate as a result of dehydration from hyperosmolar state. Patient has received volume resuscitation that is appropriate for her size we will trend lactate every 6 hours empiric antimicrobials have been initiated for possible ALGEBRAIST infection broad-spectrum cultures have been obtained we will de-escalate her antimicrobial therapy based upon micro data/clinical course Heme/Onc: DVT Prophylaxis given Endo: Vision has a history of diabetes which appears to be controlled with oral medications she came in with hyperglycemia possibly mediated by recent steroid use. Continue bolus dosing of insulin or checking Accu-Cheks every 4-6 hours Integ/MSK: Skin Care per routine ICU Nursing Protocol to prevent ulcers. Lines: All lines examined without evidence of infection including: Dispo: She will remain in the ICU for monitoring of agitation CODE: Full code I spoke with the patient's and son I had extensive conversations with both of them regarding past medical history presentation and antecedent events. The patient is unable or incompetent to participate in giving a history and/or making treatment decisions. The discussion was necessary for determining treatment decision. This discussion took place in the [ED () and ICU (son )]. The total meeting time was in aggregate 25minutes]
[2017-05-24] MEDS ORDERED: D5% in Water 1,000 ML IVC PRN (14:09)
[2017-05-24] MEDS ORDERED: *HR* Dextrose 50 % in Water (Syg) 50 ML SYRINGE IVP PRN (14:09)
[2017-05-24] MEDS ORDERED: Dextrose Gel 15 GM PO PRN ×2 (14:09)
[2017-05-24] MEDS ORDERED: 0.9 % Sodium Chloride 1,000 ML IVC SCH (14:15)
[2017-05-24 14:20] LABS: Basophils # 0.1 K/mcL (0.0-0.2); Basophils % 0.5 %; Eosinophils % 0.3 %; Hematocrit 34.8 % (35.3-44.9); Immature Granulocytes % 0.5 % (0-4); Lymphocytes # 3.7 K/mcL (0.6-4.6); Lymphocytes % 28.2 %; Mean Corpuscular HGB Conc 34.5 g/dL (31.6-35.5); Mean Corpuscular Hemoglobin 31.8 pg (28.0-33.3); Mean Corpuscular Volume 92.3 fL (83.0-100.0); Mean Platelet Volume 13.1 fL (9.4-12.4); Monocytes # 1.1 K/mcL (0.0-1.3); Monocytes % 8.7 %; Neutrophils # 8.1 K/mcL (1.6-8.9); Platelet Count 177 K/mcL (140-400); Red Blood Count 3.77 M/mcL (3.82-4.97); Red Cell Distribution Width 13.4 % (11.5-14.5); Segmented Neutrophils % 61.8 %
[2017-05-24 14:26] LABS: Ionized Calcium 1.02 mmol/L (1.15-1.35)
[2017-05-24 14:30] LABS: Calcium 7.9 mg/dL (8.6-10.8)
[2017-05-24] MEDS ORDERED: Ringers Solution, Lactated 1,000 ML IVC SCH ×2 (14:30→16:10)
[2017-05-24 14:31] LABS: Albumin 2.5 g/dL (3.5-5.0); Albumin/Globulin Ratio 0.7 (1.1-2.2); Bilirubin,Direct 0.2 mg/dL (0.0-0.5); Bilirubin,Indirect 0.5 mg/dL (0.0-1.2); Bilirubin,Total 0.7 mg/dL (0.2-1.2); Globulin 3.7 g/dL (2.4-3.5); Phosphorous 1.5 mg/dL (2.3-4.7); Potassium 3.3 mEq/L (3.5-4.5)
[2017-05-24 14:33] LABS: Total Protein 6.2 g/dL (6.0-8.3)
[2017-05-24] MEDS ORDERED: Ringers Solution, Lactated 1,000 ML IVC ONE (14:58)
[2017-05-24] MEDS ORDERED: Vancomycin 1,250 MG in D5% in Water 250 ML IVPB SCH (15:00)
[2017-05-24 15:17] LABS: Thyroid Stimulating Hormone 14.628 mcIU/mL (0.350-4.840)
[2017-05-24] MEDS: cefTRIAXone 2,000 MG in Water for inj. (sterile) 20 ML IVP SCH (15:56)
[2017-05-24] MEDS: Potassium Phosphate 44 MEQ in 0.9 % Sodium Chloride 250 ML IVPB PRN (16:09)
[2017-05-24] MEDS: Calcium Gluconate 1,000 MG in D5% in Water 100 ML IVPB PRN (16:30)
[2017-05-24] MEDS: Vancomycin 1,250 MG in D5% in Water 250 ML IVPB SCH (16:30)
--- NOTE | 2017-05-24 16:44 | Neurology - Consult Note ---
Date of Encounter: 05/24/17 Time of Encounter: 16:40 Assessment and Plan (1) Acute encephalopathy Current Visit: Yes Status: Acute Pt. presents with acute mental status changes without evidence of any focal or lateralized findings on her exam. CT was negative for evidence of infarct. In the facw of elevated white count and elevated temp , an acute infectious process is a concern. Pt. without any seizure activity. Apparently told her she had a headache. Concern for [employer] infectious process. Must also consider infection elsewhere, consider metabolic or inflammatory processes. 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 Would like to get MRI when more stable and cooperative. Critical care time spent reviewing the chart, discussing the case and examining the patient was 60 minutes. History of Present Illness HPI: Ms. Mosquera is a 71 year old female who is being seen neurologic consultation due to acute confusion, and lethargy. She has a hx of htn and DM. Hx is obtained from the chart as she is currently sedated. Apparently she went to bed the night before without incident. The following day however she became acutely confused with agitation and speech was unintelligible. Pt. was noted to have been thrashing and moving all [address] brain revealed no acute process , chronic ischemic changes were present. She was slightly febrile with an elevated white count. Apparently she told her she had a headache. Glocose upon admission was elevated >500. She is currently sedated. She has a prior hx of spinal fusion and LP was felt to have been difficult. She was also recently of steroid medication. Past Med Surg Social Fam HX - Past Medical History Medical history: other Psychiatric history: no psych history - Past Surgical History Surgical History: orthopedic, other (spinal surgery Mar, 2015; right foot surgery ) - Social History Smoking Status: Never smoker Smokeless Tobacco Status: No Alcohol use: none Drug use: none - Family History Father Living Status: Cause of : [place] Hx Family Cardiac Disorders: Yes Medications and Allergies Bisoprolol/HCTZ 04/26.25 [Ziac ] 1 each PO DAILY 05/24/17 [History] Clopidogrel [Plavix] 75 mg PO DAILY 05/24/17 [History] Dicyclomine [Bentyl] 20 mg PO QID 05/24/17 [History] Gabapentin [Neurontin] 600 mg PO BID 05/24/17 [History] Levothyroxine [Synthroid] 150 mcg PO DAILY 05/24/17 [History] Losartan Potassium [Cozaar] 50 mg PO DAILY 05/24/17 [History] Omeprazole [PriLOSEC] 40 mg PO DAILY 05/24/17 [History] Pramipexole [Mirapex] 0.5 mg PO HS 05/24/17 [History] Pravastatin Sodium [Pravachol] 40 mg PO QPM 05/24/17 [History] SitaGLIPtin [Januvia] 100 mg PO DAILY 05/24/17 [History] 3 Allergy/AdvReac Type Severity Reaction Status Date / Time simvastatin Allergy Itching Verified 05/24/17 06:02 Sulfa (Sulfonamide Allergy Rash Verified 05/24/17 06:02 Antibiotics) brimonidine [From Alphagan P] AdvReac Blurry Verified 05/24/17 06:02 [place] lisinopril [From Prinivil] AdvReac Cough Verified 05/24/17 06:02 Topical Iodine Allergy Rash Uncoded 05/24/17 06:02 ROS unobtainable: due to mental status All Systems: A 10-system review of systems was performed and is negative for pertinent findings except as documented above in the HPI. Physical Examination - Vital Signs Vital Signs: Initial Vital Signs Temp Pulse Resp BP Pulse Ox 98.0 F 73 20 140/85 96 05/24/17 06:02 05/24/17 06:02 05/24/17 06:02 05/24/17 06:02 05/24/17 06:02 - Neurologic Detailed motor examination: other (Pt. moves all 4 extremities to noxious stim. No involuntary movements.) Detailed sensory examination: other (withdraws to tactile stim.) Posture: other (No nuchal rigidity.) Mental Status Examination: Pt. is sedated. Not fully arousable She does grimace and moan. Does not spontaneously open her eyes. does not follow commands. Occasionally verbalizes one word responses. Cranial nerve examination: PERRL, EOMI (dolls eyes intact), corneal reflexes brisk symmetrically Results - Laboratory Findings CBC and BMP: 05/24/17 14:08 05/24/17 14:08 Abnormal lab findings: Abnormal lab results WBC 13.0 K/mcL (4.3-11.1) H 05/24/17 14:08 RBC 3.77 M/mcL (3.82-4.97) L 05/24/17 14:08 Hct 34.8 % (35.3-44.9) L 05/24/17 14:08 MPV 13.1 fL (9.4-12.4) H 05/24/17 14:08 Immature Plt Fraction 22.9 % (1.1-6.1) H 05/24/17 07:22 APTT 22.6 Seconds (26.0-36.0) L 05/24/17 07:07 VBG pH 7.48 pH Units (7.32-7.42) H 05/24/17 08:34 VBG pCO2 34 mmHg (41-51) L 05/24/17 08:34 VBG pO2 56 mmHg (25-50) H 05/24/17 08:34 Sodium 133 mEq/L (136-145) L D 05/24/17 14:08 Potassium 3.3 mEq/L (3.5-4.5) L D 05/24/17 14:08 Chloride 97 mEq/L (98-109) L 05/24/17 14:08 Creatinine 1.31 mg/dL (0.57-1.11) H 05/24/17 14:08 Est GFR ( Amer) 49 (> 60) L 05/24/17 14:08 Est GFR (Non-Af Amer) 40 (> 60) L 05/24/17 14:08 Glucose 279 mg/dL (70-99) H 05/24/17 14:08 Hemoglobin A1c 12.0 % (-5.6) H 05/24/17 14:08 Lactic Acid 4.0 mmol/L (0.5-2.2) H* 05/24/17 14:08 Calcium 7.9 mg/dL (8.6-10.8) L 05/24/17 14:08 Ionized Calcium 1.02 mmol/L (1.15-1.35) L 05/24/17 14:08 Phosphorus 1.5 mg/dL (2.3-4.7) L 05/24/17 14:08 Magnesium 1.0 mg/dL (1.6-2.6) L 05/24/17 14:08 AST 35 Units/L (5-34) H 05/24/17 14:08 Creatine Kinase 309 Units/L (29-168) H 05/24/17 14:08 Albumin 2.5 g/dL (3.5-5.0) L 05/24/17 14:08 Globulin 3.7 g/dL (2.4-3.5) H 05/24/17 14:08 Albumin/Globulin Ratio 0.7 (1.1-2.2) L 05/24/17 14:08 Beta-Hydroxybutyric Acd 0.30 mmol/L (0.02-0.27) H 05/24/17 08:24 TSH 14.628 mcIU/mL (0.350-4.840) H 05/24/17 14:08 Ur Specific [place] > 1.030 (1.010-1.025) H 05/24/17 09:21 Urine Protein 30 mg/dL (Neg-Trace) H 05/24/17 09:21 Urine Glucose (UA) >=1000 mg/dL (Normal) H 05/24/17 09:21 Urine Ketones Trace mg/dL (Negative) H 05/24/17 09:21 Urine Bilirubin Small (Negative) H 05/24/17 09:21 Urine Microscopic WBC 3-5 per hpf (0-3) H 05/24/17 09:21 Urine Opiates Screen Positive ng/mL (Ivyfzd=759) H 05/24/17 09:15 Consult Discharge Plan - Plan Referrals: NONE,PCP [Primary Care Provider] -
--- NOTE | 2017-05-24 17:35 | Electrocardiograph Report ---
[facility] [employer] Test Date: 2017-05-24 Pat Name: Renita Mosquera Department: 103 Room: IC02 Gender: F Speech Language Specialist: ISREAL : 1945 Requested By: Severino Vigil Order Number: [id number] Reading MD: Sreedhar Lawler MD Measurements Intervals [place] Rate: 72 P: 35 MS: 169 QRS: -45 QRSD: 98 T: 2 QT: 426 QTc: 451 Interpretive Statements SINUS RHYTHM LEFT ANTERIOR FASCICULAR BLOCK [QRS AXIS <= -45, QR IN I, RS IN II] MINIMAL VOLTAGE CRITERIA FOR LVH, CONSIDER NORMAL VARIANT [MEETS CRITERIA IN ONE OF: R(aVL), S(V1), R(V5), R(V5/V6)+S(V1)] INFERIOR MYOCARDIAL INFARCTION [40+ ms Q WAVE AND/OR ST/T ABNORMALITY IN II/aVF], OF INDETERMINATE AGE ANTEROLATERAL MYOCARDIAL INFARCTION [40+ ms Q WAVE IN I/aVL/V3-V6], PROBABLY OLD Electronically Signed On 05-24-2017 17:34:18 EDT by Sreedhar Lawler MD
[2017-05-24] MEDS: *HR* Heparin 5,000 UNIT/ML VIAL SQ SCH (17:36)
[2017-05-24] MEDS: Insulin LISPRO 300 UNITS/3 ML VIAL SQ SCH (17:46)
[2017-05-24 18:03] LABS: Triiodothyronine (T3) Free 1.91 pg/mL (1.71-3.71)
[2017-05-24] MEDS ORDERED: Ampicillin 2 GM in 0.9 % Sodium Chloride Mini Bag 100 ML IVPB SCH (20:00)
[2017-05-24] MEDS: *HR* LORazepam 2 MG/ML VIAL IVP PRN (21:38)
[2017-05-24] MEDS: Ampicillin 2 GM in 0.9 % Sodium Chloride Mini Bag 100 ML IVPB SCH (21:43)
[2017-05-25] MEDS: Insulin LISPRO 300 UNITS/3 ML VIAL SQ SCH ×5 (00:36→23:41)
[2017-05-25] MEDS: ACYCLOVIR IVPB SCH ×3 (01:27→23:43)
[2017-05-25] MEDS: D5 IVPB SCH ×3 (01:27→23:43)
[2017-05-25] MEDS: WATER IVPB SCH ×3 (01:27→23:43)
[2017-05-25] MEDS: Ampicillin 2 GM in 0.9 % Sodium Chloride Mini Bag 100 ML IVPB SCH ×7 (01:27→23:42)
[2017-05-25] MEDS: Dexmedetomidine HCl 400 MCG/100 ML MLS IVC SCH ×4 (01:37→23:19)
[2017-05-25] MEDS: *HR* LORazepam 2 MG/ML VIAL IVP PRN ×5 (04:10→21:37)
[2017-05-25] MEDS: cefTRIAXone 2,000 MG in Water for inj. (sterile) 20 ML IVP SCH ×2 (05:16→15:06)
[2017-05-25] MEDS: Vancomycin 1,250 MG in D5% in Water 250 ML IVPB SCH ×2 (05:16→16:17)
[2017-05-25 05:24] LABS: Ionized Calcium 1.05 mmol/L (1.15-1.35)
[2017-05-25 05:30] LABS: Basophils # 0.1 K/mcL (0.0-0.2); Basophils % 0.8 %; Eosinophils # 0.3 K/mcL (0.0-0.6); Eosinophils % 2.8 %; Hemoglobin 12.5 g/dL (11.5-15.4); Immature Granulocytes % 0.6 % (0-4); Lymphocytes # 3.7 K/mcL (0.6-4.6); Lymphocytes % 33.6 %; Mean Corpuscular HGB Conc 33.8 g/dL (31.6-35.5); Mean Corpuscular Hemoglobin 31.3 pg (28.0-33.3); Mean Corpuscular Volume 92.5 fL (83.0-100.0); Mean Platelet Volume 12.7 fL (9.4-12.4); Monocytes % 9.2 %; Neutrophils # 5.8 K/mcL (1.6-8.9); Platelet Count 179 K/mcL (140-400); Red Cell Distribution Width 13.3 % (11.5-14.5)
[2017-05-25] MEDS: *HR* Heparin 5,000 UNIT/ML VIAL SQ SCH ×2 (05:30→17:21)
[2017-05-25 05:37] LABS: Alanine Aminotransferase 37 Units/L (0-55); Albumin 2.3 g/dL (3.5-5.0); Albumin/Globulin Ratio 0.6 (1.1-2.2); Alkaline Phosphatase 93 Units/L (38-126); Aspartate Amino Transferase 44 Units/L (5-34); BUN/Creatinine Ratio 13 (6-26); Bilirubin,Direct 0.2 mg/dL (0.0-0.5); Bilirubin,Indirect 0.5 mg/dL (0.0-1.2); Bilirubin,Total 0.7 mg/dL (0.2-1.2); Blood Urea Nitrogen 13 mg/dL (7-20); Calcium 8.2 mg/dL (8.6-10.8); Carbon Dioxide 22 mEq/L (19-29); Chloride 103 mEq/L (98-109); Globulin 4.1 g/dL (2.4-3.5); Glucose 224 mg/dL (70-99); Magnesium 1.6 mg/dL (1.6-2.6); Osmolality,Calculated 287 (280-300); Phosphorous 2.2 mg/dL (2.3-4.7); Potassium 3.6 mEq/L (3.5-4.5); Sodium 135 mEq/L (136-145); Total Protein 6.4 g/dL (6.0-8.3); eGFR For African Americans > 60 (> 60); eGFR For Non-African Americans 57 (> 60)
[2017-05-25] MEDS: Calcium Gluconate 1,000 MG in D5% in Water 100 ML IVPB PRN (05:54)
[2017-05-25] MEDS: Potassium Phosphate 44 MEQ in 0.9 % Sodium Chloride 250 ML IVPB PRN (06:12)
--- NOTE | 2017-05-25 09:43 | Pulmonology Progress Note ---
Date of Encounter: 05/25/17 Time of Encounter: 09:43 Assessment and Plan (1) Acute encephalopathy Current Visit: Yes Status: Acute Case was reviewed during multidisciplinary ICU rounds This is likely secondary to metabolic derangements(hyperglycemia acute kidney injury along with medication effect such as gabapentin and possibly opiates) versus DIGITAL COMMUNICATIONS MANAGER infection such as meningeal encephalitis including viral (HSV) versus less likely bacterial meningitis. Unfortunately lumbar puncture was attempted but it causes of anatomy could not be completed she has been covered empirically with antimicrobials for these causes neurology has evaluated the patient plan for MRA brain and neck today. She is still having persistent agitation which responds to small doses of benzodiazepine we will try to avoid tennis altering medications as much as possible patient also need to have soft restraints to prevent disruption of care and injury to herself. She has received IV thiamine and folate She was triaged to the ICU because of agitation requiring infusion of medication and frequent nursing interventions to protect the patient's health. Patient is more cold today and able to have agitation controlled with periodic boluses of benzodiazepine. She is safe for transfer to medical telemetry with a sitter for ongoing care (2) Sepsis Current Visit: Yes Status: Acute Possible sepsis questionable DIGITAL COMMUNICATIONS MANAGER infection no clear evidence of pulmonary infection she is receive verdugo cultures which are pending at this time. Broad- spectrum antibiotics to cover for DIGITAL COMMUNICATIONS MANAGER infections including strep pneumo Listeria and HSV encephalitis. De-escalate next 24 hours based upon clinical course. She has received adequate fluid resuscitation. Lactate is normalized Qualifiers: Sepsis type: sepsis due to unspecified organism Qualified Code(s): A41.9 - Sepsis, unspecified organism (3) MALIK (acute kidney injury) Current Visit: Yes Status: Acute Acute kidney injury is secondary to hyperosmolar state and volume depletion hostilely complicated by sepsis this is resolved crystalloid infusion continue to monitor urine output (4) Type 2 diabetes mellitus Current Visit: Yes Status: Acute Uncontrolled with hemoglobin A1c greater than 12. Continue bolus dosing on high scale and we have added a basal dose of long acting insulin continue Accu- Cheks every 6 hours while nothing by mouth Qualifiers: Diabetes mellitus complication status: with hyperglycemia Diabetes mellitus termite control service representative insulin use: without termite control service representative use Qualified Code(s): E11.65 - Type 2 diabetes mellitus with hyperglycemia (5) Lactic acidosis Current Visit: Yes Status: Acute This is resolved is unclear to me if this was secondary to volume depletion or severe sepsis but with fluid resuscitation lactate has normalized she was never significantly hypotensive during this admission. Subjective Principal diagnosis: Acute encephalopathy Interval history: Overnight patient has had persistent agitation requiring high doses of Precedex along with periodic boluses of benzodiazepine (Ativan). She is otherwise hemodynamically stable. No fever noted on examination. Blood sugar has been persistently elevated however not to the level of admission (>500). She still unable to participate in conversation. Objective PUL Vital signs: Last Vital Signs Temp 97.3 F L 05/25/17 08:00 Pulse 56 05/25/17 09:00 Resp 19 05/25/17 09:00 BP 142/78 05/25/17 09:00 Pulse Ox 94 05/25/17 09:00 General appearance: lethargic, other (She is P is full and sleeping in bed when I examined her) Eyes: nonicteric ENT: oropharynx moist Neck: supple Effort: normal Auscultation: bilateral: rales (In lung bases) Cardiovascular: regular rate and rhythm Gastrointestinal: normoactive bowel sounds, soft, non-tender Integumentary: normal Extremities: no edema, no clubbing, pulses normal pupils equal and round (She is not able to participate in the examination but she does have spontaneous movement of all 4 extremities which are equally without focal deficit on examination today. She has deep tendon reflexes present and lower extremities. ) Results - Laboratory Findings CBC and BMP: 05/25/17 05:09 05/25/17 05:09 PT/INR, D-dimer PT 12.1 Seconds (9.4-12.1) 05/24/17 07:07 Abnormal lab findings: Abnormal lab results MPV 12.7 fL (9.4-12.4) H 05/25/17 05:09 Immature Plt Fraction 22.9 % (1.1-6.1) H 05/24/17 07:22 APTT 22.6 Seconds (26.0-36.0) L 05/24/17 07:07 VBG pH 7.48 pH Units (7.32-7.42) H 05/24/17 08:34 VBG pCO2 34 mmHg (41-51) L 05/24/17 08:34 VBG pO2 56 mmHg (25-50) H 05/24/17 08:34 Sodium 135 mEq/L (136-145) L 05/25/17 05:09 Est GFR (Non-Af Amer) 57 (> 60) L 05/25/17 05:09 Glucose 224 mg/dL (70-99) H 05/25/17 05:09 POC Glucose 254 (58-89) H 05/25/17 00:11 Hemoglobin A1c 12.0 % (-5.6) H 05/24/17 14:08 Calcium 8.2 mg/dL (8.6-10.8) L 05/25/17 05:09 Ionized Calcium 1.05 mmol/L (1.15-1.35) L 05/25/17 05:09 Phosphorus 2.2 mg/dL (2.3-4.7) L 05/25/17 05:09 AST 44 Units/L (5-34) H 05/25/17 05:09 Creatine Kinase 309 Units/L (29-168) H 05/24/17 14:08 Albumin 2.3 g/dL (3.5-5.0) L 05/25/17 05:09 Globulin 4.1 g/dL (2.4-3.5) H 05/25/17 05:09 Albumin/Globulin Ratio 0.6 (1.1-2.2) L 05/25/17 05:09 Beta-Hydroxybutyric Acd 0.30 mmol/L (0.02-0.27) H 05/24/17 08:24 TSH 14.628 mcIU/mL (0.350-4.840) H 05/24/17 14:08 Free T4 0.65 ng/dl (0.70-1.48) L 05/24/17 14:08 Ur Specific [place] > 1.030 (1.010-1.025) H 05/24/17 09:21 Urine Protein 30 mg/dL (Neg-Trace) H 05/24/17 09:21 Urine Glucose (UA) >=1000 mg/dL (Normal) H 05/24/17 09:21 Urine Ketones Trace mg/dL (Negative) H 05/24/17 09:21 Urine Bilirubin Small (Negative) H 05/24/17 09:21 Urine Microscopic WBC 3-5 per hpf (0-3) H 05/24/17 09:21 Urine Opiates Screen Positive ng/mL (Ewmkhg=466) H 05/24/17 09:15 - Clinical Findings Intake & Output: Intake & Output 05/24/17 05/25/17 05/25/17 23:59 07:59 15:59 Intake Total 2680.2 / 2680.2 670 / 670 Output Total 1800 / 1800 2150 / 2150 Balance 880.2 / 880.2 -1480 / -1480 Weight 78.1 kg Consult Discharge Plan - Plan Referrals: NONE,PCP [Primary Care Provider] -
--- NOTE | 2017-05-25 12:18 | Neurology Progress Note ---
Date of Encounter: 05/25/17 Time of Encounter: 12:14 Assessment and Plan (1) Acute encephalopathy Current Visit: Yes Status: Acute White blood cells have decreased down to normal. Afebrile. Her speech is still jargon and is remniscent of dominant hemispheric dysfunction. Anxious for MRI results. To assess for evidence of vascular or inflammatory injury. Pulmonology assessment apprecited. Agree with tapering abx over next few days. I would like to maintain at least 4 days of IV acyclovir and perhaps convert to oral to complete 10 days of empiric therapy. Will continue to follow. Critical care time spent with this patient today was 30 minutes. Subjective Principal diagnosis: Acute encephalopathy Interval history: Renita Mosquera was seen and examined at the bedside. Nursing as well as her are present. She remains confused and agitated when the sedation wears off. However, her exam is improved today as she does attempt to speak although nonsensical. She is also making eye contact. Still not following commands. White blood cells are normal today. Afebrile. Pt. now being taken to MRI. Cranial nerves are intact. She moves all 4 extremities at will. No clonus. Objective - Constitutional Vitals: Temp Pulse Resp BP Pulse Ox 97.3 F L 56 19 126/79 96 05/25/17 08:00 05/25/17 10:00 05/25/17 10:00 05/25/17 10:00 05/25/17 10:00 - Neurological Exam Motor Examination: Present: other (Pt. moves all 4 extremities to noxious stim. No involuntary movements.) Sensation intact: Present: other (withdraws to tactile stim.) Posture: Present: other (No nuchal rigidity.) Cranial nerve examination: Present: PERRL, EOMI (dolls eyes intact), corneal reflexes brisk symmetrically Additional comments: See notes under subjective. Results - Laboratory Findings CBC and BMP: 05/25/17 05:09 05/25/17 05:09 Abnormal lab findings: Abnormal lab results MPV 12.7 fL (9.4-12.4) H 05/25/17 05:09 Immature Plt Fraction 22.9 % (1.1-6.1) H 05/24/17 07:22 APTT 22.6 Seconds (26.0-36.0) L 05/24/17 07:07 VBG pH 7.48 pH Units (7.32-7.42) H 05/24/17 08:34 VBG pCO2 34 mmHg (41-51) L 05/24/17 08:34 VBG pO2 56 mmHg (25-50) H 05/24/17 08:34 Sodium 135 mEq/L (136-145) L 05/25/17 05:09 Est GFR (Non-Af Amer) 57 (> 60) L 05/25/17 05:09 Glucose 224 mg/dL (70-99) H 05/25/17 05:09 POC Glucose 254 (58-89) H 05/25/17 00:11 Hemoglobin A1c 12.0 % (-5.6) H 05/24/17 14:08 Calcium 8.2 mg/dL (8.6-10.8) L 05/25/17 05:09 Ionized Calcium 1.05 mmol/L (1.15-1.35) L 05/25/17 05:09 Phosphorus 2.2 mg/dL (2.3-4.7) L 05/25/17 05:09 AST 44 Units/L (5-34) H 05/25/17 05:09 Creatine Kinase 309 Units/L (29-168) H 05/24/17 14:08 Albumin 2.3 g/dL (3.5-5.0) L 05/25/17 05:09 Globulin 4.1 g/dL (2.4-3.5) H 05/25/17 05:09 Albumin/Globulin Ratio 0.6 (1.1-2.2) L 05/25/17 05:09 Beta-Hydroxybutyric Acd 0.30 mmol/L (0.02-0.27) H 05/24/17 08:24 TSH 14.628 mcIU/mL (0.350-4.840) H 05/24/17 14:08 Free T4 0.65 ng/dl (0.70-1.48) L 05/24/17 14:08 Ur Specific [place] > 1.030 (1.010-1.025) H 05/24/17 09:21 Urine Protein 30 mg/dL (Neg-Trace) H 05/24/17 09:21 Urine Glucose (UA) >=1000 mg/dL (Normal) H 05/24/17 09:21 Urine Ketones Trace mg/dL (Negative) H 05/24/17 09:21 Urine Bilirubin Small (Negative) H 05/24/17 09:21 Urine Microscopic WBC 3-5 per hpf (0-3) H 05/24/17 09:21 Urine Opiates Screen Positive ng/mL (Gxxcck=388) H 05/24/17 09:15 Consult Discharge Plan - Plan Referrals: NONE,PCP [Primary Care Provider] -
[2017-05-25] MEDS ORDERED: Haloperidol Lactate 5 MG/ML VIAL ONE (12:31)
[2017-05-25] MEDS ORDERED: Haloperidol Lactate 5 MG/ML VIAL IVP ONE ×2 (17:57→17:58)
[2017-05-25 18:12] LABS: Potassium 4.8 mEq/L (3.5-4.5)
[2017-05-25 18:15] LABS: Ionized Calcium 1.11 mmol/L (1.15-1.35)
[2017-05-25] MEDS ORDERED: Clotrimazole Vag CRM 45 GM TUBE VG SCH (21:00)
[2017-05-25] MEDS ORDERED: Insulin DETEMIR 100 UNIT/ML X5UNITS SQ SCH (21:00)
[2017-05-25] MEDS ORDERED: Miconazole 2% cream 118 GM TUBE TP SCH (21:00)
[2017-05-26 03:37] LABS: Basophils # 0.1 K/mcL (0.0-0.2); Basophils % 0.6 %; Eosinophils # 0.2 K/mcL (0.0-0.6); Eosinophils % 1.8 %; Hemoglobin 13.5 g/dL (11.5-15.4); Immature Granulocytes % 0.5 % (0-4); Lymphocytes # 2.7 K/mcL (0.6-4.6); Mean Corpuscular HGB Conc 35.5 g/dL (31.6-35.5); Mean Corpuscular Hemoglobin 32.3 pg (28.0-33.3); Mean Corpuscular Volume 90.9 fL (83.0-100.0); Mean Platelet Volume 13.1 fL (9.4-12.4); Monocytes # 1.1 K/mcL (0.0-1.3); Monocytes % 8.5 %; Neutrophils # 8.8 K/mcL (1.6-8.9); Platelet Count 190 K/mcL (140-400); Red Blood Count 4.18 M/mcL (3.82-4.97); Red Cell Distribution Width 13.3 % (11.5-14.5); Segmented Neutrophils % 67.6 %
[2017-05-26 03:51] LABS: Alanine Aminotransferase 53 Units/L (0-55); Albumin 2.4 g/dL (3.5-5.0); Albumin/Globulin Ratio 0.5 (1.1-2.2); Alkaline Phosphatase 106 Units/L (38-126); BUN/Creatinine Ratio 10 (6-26); Bilirubin,Indirect 0.4 mg/dL (0.0-1.2); Bilirubin,Total 0.6 mg/dL (0.2-1.2); Blood Urea Nitrogen 9 mg/dL (7-20); Calcium 8.4 mg/dL (8.6-10.8); Carbon Dioxide 21 mEq/L (19-29); Chloride 104 mEq/L (98-109); Globulin 4.8 g/dL (2.4-3.5); Glucose 113 mg/dL (70-99); Osmolality,Calculated 281 (280-300); Phosphorous 2.7 mg/dL (2.3-4.7); Potassium 4.4 mEq/L (3.5-4.5); Sodium 136 mEq/L (136-145); Total Protein 7.2 g/dL (6.0-8.3); eGFR For African Americans > 60 (> 60); eGFR For Non-African Americans > 60 (> 60)
[2017-05-26 03:55] LABS: Aspartate Amino Transferase 99 Units/L (5-34); Bilirubin,Direct 0.2 mg/dL (0.0-0.5); Magnesium 1.8 mg/dL (1.6-2.6)
[2017-05-26 03:57] LABS: Ionized Calcium 1.03 mmol/L (1.15-1.35)
[2017-05-26] MEDS: Dexmedetomidine HCl 400 MCG/100 ML MLS IVC SCH (03:59)
[2017-05-26] MEDS: cefTRIAXone 2,000 MG in Water for inj. (sterile) 20 ML IVP SCH ×2 (04:00→17:13)
[2017-05-26] MEDS: Calcium Gluconate 1,000 MG in D5% in Water 100 ML IVPB PRN (05:07)
[2017-05-26] MEDS: Ampicillin 2 GM in 0.9 % Sodium Chloride Mini Bag 100 ML IVPB SCH (05:10)
[2017-05-26] MEDS: *HR* Heparin 5,000 UNIT/ML VIAL SQ SCH ×2 (05:10→17:13)
[2017-05-26] MEDS: Insulin LISPRO 300 UNITS/3 ML VIAL SQ SCH ×4 (05:20→23:50)
--- NOTE | 2017-05-26 09:58 | Pulmonology Progress Note ---
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 Appreciate Neurology recs She has had significant improvement and overall encephalopathy in the last 24 hours I suspect is a consequence of the resolution of her metabolic derangements. She could not tolerate MRI MRA yesterday but plan to coordinate this as soon as possible now that she is calm and following commands We will continue sitter today to prevent personal/harm She is safe for transfer to general medical floor for ongoing care. (2) Sepsis Current Visit: Yes Status: Acute Possible sepsis questionable CONCRETE ENGINEERING TECHNICIAN infection no clear evidence of pulmonary infection she is receive verdugo cultures which are pending at this time. I have a low suspicion for bacterial meningitis and given hiving level I will de- escalate her antimicrobials but stopping vancomycin and ampicillin (cont Rocephin for at least 24 more hours and Acyclovir for possible HSV encephalitis. Qualifiers: Sepsis type: sepsis due to unspecified organism Qualified Code(s): A41.9 - Sepsis, unspecified organism (3) MALIK (acute kidney injury) Current Visit: Yes Status: Acute Acute kidney injury has resolved. IV fluids stopped. ADAT monitor UOP (4) Type 2 diabetes mellitus Current Visit: Yes Status: Acute Uncontrolled with hemoglobin A1c greater than 12. Continue bolus dosing on high scale increase basal dose of long acting insulin continue Accu-Cheks every 6 hours while nothing by mouth Qualifiers: Diabetes mellitus complication status: with hyperglycemia Diabetes mellitus truck terminal manager insulin use: without [facility] use Qualified Code(s): E11.65 - Type 2 diabetes mellitus with hyperglycemia (5) Lactic acidosis Current Visit: Yes Status: Acute This is resolved is unclear to me if this was secondary to volume depletion or severe sepsis but with fluid resuscitation lactate has normalized she was never significantly hypotensive during this admission. Subjective Principal diagnosis: Acute encephalopathy Interval history: The patient is much more awake and alert today she is able to follow commands is more calm and is generally oriented to person however she still confused about where she is. Remains hemodynamically stable. She denies headache or neck pain she has chronic low back pain which seems to be about baseline for her. Otherwise she is without complaint Objective PUL Vital signs: Last Vital Signs Temp 98.2 F 05/26/17 08:00 Pulse 71 05/26/17 09:00 Resp 19 05/26/17 09:00 BP 135/75 05/26/17 09:00 Pulse Ox 92 05/26/17 09:00 General appearance: no acute distress Auscultation: bilateral: clear Cardiovascular: regular rate and rhythm Gastrointestinal: normoactive bowel sounds Integumentary: normal Extremities: no edema non-focal exam, pupils equal and round, CN II-XII normal mood appropriate Results - Laboratory Findings CBC and BMP: 05/26/17 03:16 05/26/17 03:16 PT/INR, D-dimer PT 12.1 Seconds (9.4-12.1) 05/24/17 07:07 Abnormal lab findings: Abnormal lab results WBC 13.0 K/mcL (4.3-11.1) H 05/26/17 03:16 MPV 13.1 fL (9.4-12.4) H 05/26/17 03:16 Immature Plt Fraction 22.9 % (1.1-6.1) H 05/24/17 07:22 APTT 22.6 Seconds (26.0-36.0) L 05/24/17 07:07 VBG pH 7.48 pH Units (7.32-7.42) H 05/24/17 08:34 VBG pCO2 34 mmHg (41-51) L 05/24/17 08:34 VBG pO2 56 mmHg (25-50) H 05/24/17 08:34 Glucose 113 mg/dL (70-99) H 05/26/17 03:16 POC Glucose 133 (58-89) H 05/26/17 05:15 Hemoglobin A1c 12.0 % (-5.6) H 05/24/17 14:08 Calcium 8.4 mg/dL (8.6-10.8) L 05/26/17 03:16 Ionized Calcium 1.03 mmol/L (1.15-1.35) L 05/26/17 03:16 AST 99 Units/L (5-34) H 05/26/17 03:16 Creatine Kinase 309 Units/L (29-168) H 05/24/17 14:08 Albumin 2.4 g/dL (3.5-5.0) L 05/26/17 03:16 Globulin 4.8 g/dL (2.4-3.5) H 05/26/17 03:16 Albumin/Globulin Ratio 0.5 (1.1-2.2) L 05/26/17 03:16 Beta-Hydroxybutyric Acd 0.30 mmol/L (0.02-0.27) H 05/24/17 08:24 TSH 14.628 mcIU/mL (0.350-4.840) H 05/24/17 14:08 Free T4 0.65 ng/dl (0.70-1.48) L 05/24/17 14:08 Ur Specific [place] > 1.030 (1.010-1.025) H 05/24/17 09:21 Urine Protein 30 mg/dL (Neg-Trace) H 05/24/17 09:21 Urine Glucose (UA) >=1000 mg/dL (Normal) H 05/24/17 09:21 Urine Ketones Trace mg/dL (Negative) H 05/24/17 09:21 Urine Bilirubin Small (Negative) H 05/24/17 09:21 Urine Microscopic WBC 3-5 per hpf (0-3) H 05/24/17 09:21 Vancomycin Trough 22.8 mcg/mL (10-20) H* 05/26/17 03:16 Urine Opiates Screen Positive ng/mL (Ugefdc=554) H 05/24/17 09:15 - Microbiology Findings Microbiology Findings: Microbiology, Last 48 Hours 05/24/17 11:40 Blood Culture - Preliminary Peripheral Venipuncture No growth. 05/24/17 11:40 Blood Culture - Preliminary Peripheral Venipuncture No growth. - Clinical Findings Intake & Output: Intake & Output 05/26/17 05/26/17 05/26/17 00:59 07:59 15:59 Intake Total Output Total 200 / 200 Balance -200 / -200 Consult Discharge Plan - Plan Referrals: NONE,PCP [Primary Care Provider] -
--- NOTE | 2017-05-26 11:12 | Neurology Progress Note ---
Date of Encounter: 05/26/17 Time of Encounter: 11:08 Assessment and Plan (1) Acute encephalopathy Current Visit: Yes Status: Acute Pt. clinically improved. Etiology for this sudden change hasn't been clearly identified. Anticipate MRI brain/ MRA tomorrow. Still recommend Maintaining Acyclovir through 4 days of IV therapy and may continue oral acyclovir for 10 total days of therapy after discharge. Appropriate to move her to the medical floor. Will see tomorrow. Subjective Principal diagnosis: Acute encephalopathy Interval history: The chart was reviewed, patient was seen and examined. Case was discussed with nursing and her . She is remarkably improved. AAO x 3. Follows commands answers questions appropriately. Recognizes her , follows commands. Moves all 4 extremities without difficulty. CN II-XII intact. Unable to get MRI/MRA yesterday due to extreme agitation. Anticipate getting this tomorrow. WBC's still slightly elevated, however she is clinically much improved. Objective - Constitutional Vitals: Temp Pulse Resp BP Pulse Ox 98.2 F 71 19 135/75 92 05/26/17 08:00 05/26/17 09:00 05/26/17 09:00 05/26/17 09:00 05/26/17 09:00 - Neurological Exam Motor Examination: Present: other (Pt. moves all 4 extremities to noxious stim. No involuntary movements.) Sensation intact: Present: other (withdraws to tactile stim.) Posture: Present: other (No nuchal rigidity.) Cranial nerve examination: Present: PERRL, EOMI (dolls eyes intact), corneal reflexes brisk symmetrically Additional comments: Listed under subjective. Results - Laboratory Findings CBC and BMP: 05/26/17 03:16 05/26/17 03:16 Abnormal lab findings: Abnormal lab results WBC 13.0 K/mcL (4.3-11.1) H 05/26/17 03:16 MPV 13.1 fL (9.4-12.4) H 05/26/17 03:16 Immature Plt Fraction 22.9 % (1.1-6.1) H 05/24/17 07:22 APTT 22.6 Seconds (26.0-36.0) L 05/24/17 07:07 VBG pH 7.48 pH Units (7.32-7.42) H 05/24/17 08:34 VBG pCO2 34 mmHg (41-51) L 05/24/17 08:34 VBG pO2 56 mmHg (25-50) H 05/24/17 08:34 Glucose 113 mg/dL (70-99) H 05/26/17 03:16 POC Glucose 133 (58-89) H 05/26/17 05:15 Hemoglobin A1c 12.0 % (-5.6) H 05/24/17 14:08 Calcium 8.4 mg/dL (8.6-10.8) L 05/26/17 03:16 Ionized Calcium 1.03 mmol/L (1.15-1.35) L 05/26/17 03:16 AST 99 Units/L (5-34) H 05/26/17 03:16 Creatine Kinase 309 Units/L (29-168) H 05/24/17 14:08 Albumin 2.4 g/dL (3.5-5.0) L 05/26/17 03:16 Globulin 4.8 g/dL (2.4-3.5) H 05/26/17 03:16 Albumin/Globulin Ratio 0.5 (1.1-2.2) L 05/26/17 03:16 Beta-Hydroxybutyric Acd 0.30 mmol/L (0.02-0.27) H 05/24/17 08:24 TSH 14.628 mcIU/mL (0.350-4.840) H 05/24/17 14:08 Free T4 0.65 ng/dl (0.70-1.48) L 05/24/17 14:08 Ur Specific [place] > 1.030 (1.010-1.025) H 05/24/17 09:21 Urine Protein 30 mg/dL (Neg-Trace) H 05/24/17 09:21 Urine Glucose (UA) >=1000 mg/dL (Normal) H 05/24/17 09:21 Urine Ketones Trace mg/dL (Negative) H 05/24/17 09:21 Urine Bilirubin Small (Negative) H 05/24/17 09:21 Urine Microscopic WBC 3-5 per hpf (0-3) H 05/24/17 09:21 Vancomycin Trough 22.8 mcg/mL (10-20) H* 05/26/17 03:16 Urine Opiates Screen Positive ng/mL (Aqrkyg=764) H 05/24/17 09:15 Consult Discharge Plan - Plan Referrals: NONE,PCP [Primary Care Provider] -
[2017-05-26] MEDS ORDERED: Dexmedetomidine HCl 400 MCG/100 ML MLS IVC SCH (11:18)
[2017-05-26] MEDS ORDERED: *HR* LORazepam 2 MG/ML VIAL IVP PRN (11:18)
[2017-05-26] MEDS ORDERED: Dextrose Gel 15 GM PO PRN ×2 (11:18)
[2017-05-26] MEDS ORDERED: Naloxone 0.4 MG/ML INJ IVP PRN (11:18)
[2017-05-26] MEDS ORDERED: D5% in Water 1,000 ML IVC PRN (11:18)
[2017-05-26] MEDS ORDERED: Potassium Phosphate 44 MEQ in 0.9 % Sodium Chloride 250 ML IVPB PRN (11:18)
[2017-05-26] MEDS ORDERED: *HR* Dextrose 50 % in Water (Syg) 50 ML SYRINGE IVP PRN (11:18)
[2017-05-26] MEDS: WATER IVPB SCH (12:56)
[2017-05-26] MEDS: D5 IVPB SCH (12:56)
[2017-05-26] MEDS: ACYCLOVIR IVPB SCH (12:56)
[2017-05-26] MEDS ORDERED: Insulin DETEMIR 100 UNIT/ML X5UNITS SQ SCH (21:00)
[2017-05-26] MEDS ORDERED: Aminoglycoside Consult 1 EACH MC ONE (21:49)
[2017-05-26] MEDS: Insulin DETEMIR 100 UNIT/ML X5UNITS SQ SCH (21:59)
[2017-05-26] MEDS: Clotrimazole Vag CRM 45 GM TUBE VG SCH (22:22)
[2017-05-26] MEDS: Miconazole 2% cream 118 GM TUBE TP SCH (22:22)
[2017-05-27] MEDS: D5 IVPB SCH ×2 (00:01→16:39)
[2017-05-27] MEDS: WATER IVPB SCH ×2 (00:01→16:39)
[2017-05-27] MEDS: ACYCLOVIR IVPB SCH ×2 (00:01→16:39)
[2017-05-27] MEDS: Acetaminophen 325 MG TABLET PO PRN ×2 (01:10→08:22)
[2017-05-27] MEDS: cefTRIAXone 2,000 MG in Water for inj. (sterile) 20 ML IVP SCH ×2 (03:29→16:33)
[2017-05-27] MEDS: *HR* Heparin 5,000 UNIT/ML VIAL SQ SCH ×2 (05:16→19:56)
[2017-05-27] MEDS: Insulin LISPRO 300 UNITS/3 ML VIAL SQ SCH ×4 (08:21→21:24)
--- NOTE | 2017-05-27 13:30 | Neurology Progress Note ---
Date of Encounter: 05/27/17 Time of Encounter: 13:28 Assessment and Plan (1) Acute encephalopathy Current Visit: Yes Status: Acute Patient has improved now back to her normal baseline. She does however maintain a slight headache. I am highly suspicious that we are dealing with herpes encephalitis. MRI scan of the brain is still pending. I would still like to have a lumbar puncture to confirm diagnosis. Otherwise patient will need to get a full 10 days of IV therapy. If the decision is made to discharge , she can have this done through home nursing care. Otherwise I will follow up with her in my office after she is discharged. Subjective Principal diagnosis: Acute encephalopathy Interval history: The chart was reviewed, the patient was seen and examined. Patient sitting up at bedside talking on the telephone at the time I entered the room. Her is present. She is back to her normal neurologic status. She does however complain of ongoing headaches. She states that typically she does not experience headaches. She is also anxious to get out of the hospital because she is apparently running for Public office. This is the third day of intravenous acyclovir therapy. The actual recommendation is 10 days IV therapy. Objective - Constitutional Vitals: Temp Pulse Resp BP Pulse Ox 97.7 F 128 16 150/91 94 05/27/17 11:20 05/27/17 11:20 05/27/17 11:20 05/27/17 11:20 05/27/17 11:20 - Neurological Exam Motor Examination: Present: grossly full strength in all extremities, other ( Pt. moves all 4 extremities to noxious stim. No involuntary movements.) Sensation intact: Present: other (withdraws to tactile stim.) Posture: Present: other (No nuchal rigidity.) Reflexes: Biceps: 2+, Triceps: 2+, Brachioradialis: 2+, Patella: 2+, Achilles: 2 + Mental Status Examination: Present: awake, alert, oriented to person, oriented to place, oriented to time, follows commands appropriately, answers questions appropriately, no agnosia, no aphasia, no aproxia, lucid Cranial nerve examination: Present: PERRL, EOMI (dolls eyes intact), visual sparks intact, corneal reflexes brisk symmetrically, sensory to face intact, mastication intact, no facial asymmetry is present, no dysarthria, hearing is intact symmetrically, soft palate elevates bilaterally upon phonation, gag reflex intact Results - Laboratory Findings CBC and BMP: 05/26/17 03:16 05/26/17 03:16 Abnormal lab findings: Abnormal lab results WBC 13.0 K/mcL (4.3-11.1) H 05/26/17 03:16 MPV 13.1 fL (9.4-12.4) H 05/26/17 03:16 Immature Plt Fraction 22.9 % (1.1-6.1) H 05/24/17 07:22 APTT 22.6 Seconds (26.0-36.0) L 05/24/17 07:07 VBG pH 7.48 pH Units (7.32-7.42) H 05/24/17 08:34 VBG pCO2 34 mmHg (41-51) L 05/24/17 08:34 VBG pO2 56 mmHg (25-50) H 05/24/17 08:34 Glucose 113 mg/dL (70-99) H 05/26/17 03:16 POC Glucose 225 (58-89) H 05/26/17 23:49 Hemoglobin A1c 12.0 % (-5.6) H 05/24/17 14:08 Calcium 8.4 mg/dL (8.6-10.8) L 05/26/17 03:16 Ionized Calcium 1.03 mmol/L (1.15-1.35) L 05/26/17 03:16 AST 99 Units/L (5-34) H 05/26/17 03:16 Creatine Kinase 309 Units/L (29-168) H 05/24/17 14:08 Albumin 2.4 g/dL (3.5-5.0) L 05/26/17 03:16 Globulin 4.8 g/dL (2.4-3.5) H 05/26/17 03:16 Albumin/Globulin Ratio 0.5 (1.1-2.2) L 05/26/17 03:16 Beta-Hydroxybutyric Acd 0.30 mmol/L (0.02-0.27) H 05/24/17 08:24 TSH 14.628 mcIU/mL (0.350-4.840) H 05/24/17 14:08 Free T4 0.65 ng/dl (0.70-1.48) L 05/24/17 14:08 Ur Specific [place] > 1.030 (1.010-1.025) H 05/24/17 09:21 Urine Protein 30 mg/dL (Neg-Trace) H 05/24/17 09:21 Urine Glucose (UA) >=1000 mg/dL (Normal) H 05/24/17 09:21 Urine Ketones Trace mg/dL (Negative) H 05/24/17 09:21 Urine Bilirubin Small (Negative) H 05/24/17 09:21 Urine Microscopic WBC 3-5 per hpf (0-3) H 05/24/17 09:21 Vancomycin Trough 22.8 mcg/mL (10-20) H* 05/26/17 03:16 Urine Opiates Screen Positive ng/mL (Pvpuse=548) H 05/24/17 09:15 Consult Discharge Plan - Plan Referrals: NONE,PCP [Primary Care Provider] -
--- NOTE | 2017-05-27 15:08 | Internal Med Progress Note ---
Date of Encounter: 05/27/17 Time of Encounter: 14:30 - Assessment and plan (1) MALIK (acute kidney injury) Current Visit: Yes Status: Resolved Assessment and plan: Presumed to be related to underlying infection. Currently resolved. Serum creatinine at baseline. (2) Acute encephalopathy Current Visit: Yes Status: Resolved Assessment and plan: Patient was initially treated with broad-spectrum IV antibiotics and acyclovir for bacterial versus HSV meningitis/encephalitis. CT head showed no acute abnormality. MRI brain has been ordered, which could not be completed while the patient was in ICU as she was noted to be uncooperative and agitated. She is currently at baseline mental status, we will try to obtain MRI today. Blood cultures remain negative. Neurology follow-up appreciated, recommend to complete IV acyclovir for 10 days for possible HSV encephalitis. Leukocytosis initially resolved, noted to be slightly worse today. Continue to monitor. Lumbar puncture could not be completed due to presence of hardware. (3) Type 2 diabetes mellitus Current Visit: Yes Status: Chronic Assessment and plan: Blood sugars noted to be elevated. Hemoglobin A1c noted to be 12%. Continue basal bolus insulin regimen, we will start nutritional insulin. Accu-Chek blood glucose monitoring. Diabetic diet. 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 Qualified Code(s): E11.65 - Type 2 diabetes mellitus with hyperglycemia (4) Hypertension Current Visit: Yes Status: Chronic Qualifiers: Hypertension type: essential hypertension Qualified Code(s): I10 - Essential (primary) hypertension (5) Lactic acidosis Current Visit: Yes Status: Resolved - Subjective Interval history: Reports some headache, improved since admission; noted to be at baseline mental status; denies focal weakness, paresthesias, chest or abdominal pain, nausea/ vomiting; - Constitutional Vitals: Temp Pulse Resp BP Pulse Ox 97.5 F L 121 17 175/98 91 05/27/17 13:20 05/27/17 13:20 05/27/17 13:20 05/27/17 13:20 05/27/17 13:20 General appearance: Present: A&O X 3, answers questions appropriately - Respiratory Respiratory exam: Present: CTAB. Absent: accessory muscle use, rales, rhonchi, wheezes - Cardiovascular Cardiovascular exam: Present: RRR, +S1, +S2. Absent: diastolic murmur, gallop, rubs, systolic murmur - GI/Abdominal GI/Abdominal exam: Present: normal bowel sounds, soft, no peritoneal signs. Absent: distended, tenderness - Extremities Exam Extremities exam: Present: full ROM, warm, radial pulses palpable and symmetrical. Absent: calf tenderness, cyanotic, pedal edema - Neurological Exam Neurological exam: Present: CN II-XII intact, oriented X3, no focal deficits. Absent: pronater drift, facial droop, speech deficit - Skin Skin exam: Present: dry, intact Internal Medicine: Result - Labs CBC & Chem 7: 05/26/17 03:16 05/26/17 03:16 - ABG Interpretation ABG results: PT/INR, D-dimer PT 12.1 Seconds (9.4-12.1) 05/24/17 07:07 Consult Discharge Plan - Plan Referrals: NONE,PCP [Primary Care Provider] -
[2017-05-27] MEDS: Bisoprolol/HCTZ 10/6.25 TABLET PO SCH (21:15)
[2017-05-27] MEDS: Insulin DETEMIR 100 UNIT/ML X5UNITS SQ SCH (21:25)
[2017-05-27] MEDS: Clotrimazole Vag CRM 45 GM TUBE VG SCH ×2 (21:26→21:35)
[2017-05-27] MEDS: Miconazole 2% cream 118 GM TUBE TP SCH (21:26)
[2017-05-28] MEDS: Acetaminophen 325 MG TABLET PO PRN (00:32)
[2017-05-28] MEDS: ACYCLOVIR IVPB SCH ×2 (00:36→13:08)
[2017-05-28] MEDS: WATER IVPB SCH ×2 (00:36→13:08)
[2017-05-28] MEDS: D5 IVPB SCH ×2 (00:36→13:08)
[2017-05-28] MEDS: cefTRIAXone 2,000 MG in Water for inj. (sterile) 20 ML IVP SCH ×2 (02:18→18:40)
[2017-05-28 03:42] LABS: Basophils # 0.1 K/mcL (0.0-0.2); Basophils % 0.5 %; Eosinophils # 0.1 K/mcL (0.0-0.6); Eosinophils % 0.6 %; Hematocrit 38.9 % (35.3-44.9); Hemoglobin 13.5 g/dL (11.5-15.4); Immature Granulocytes % 0.7 % (0-4); Lymphocytes # 3.9 K/mcL (0.6-4.6); Lymphocytes % 30.7 %; Mean Corpuscular HGB Conc 34.7 g/dL (31.6-35.5); Mean Corpuscular Hemoglobin 31.8 pg (28.0-33.3); Mean Corpuscular Volume 91.5 fL (83.0-100.0); Mean Platelet Volume 13.5 fL (9.4-12.4); Monocytes # 1.3 K/mcL (0.0-1.3); Neutrophils # 7.2 K/mcL (1.6-8.9); Platelet Count 215 K/mcL (140-400); Red Blood Count 4.25 M/mcL (3.82-4.97); Red Cell Distribution Width 13.9 % (11.5-14.5); Segmented Neutrophils % 57.5 %
[2017-05-28 03:53] LABS: BUN/Creatinine Ratio 8 (6-26); Blood Urea Nitrogen 7 mg/dL (7-20); Calcium 9.1 mg/dL (8.6-10.8); Carbon Dioxide 21 mEq/L (19-29); Chloride 103 mEq/L (98-109); Glucose 200 mg/dL (70-99); Osmolality,Calculated 292 (280-300); eGFR For African Americans > 60 (> 60); eGFR For Non-African Americans > 60 (> 60)
[2017-05-28 03:54] LABS: Potassium 3.1 mEq/L (3.5-4.5); Sodium 139 mEq/L (136-145)
[2017-05-28] MEDS: *HR* Heparin 5,000 UNIT/ML VIAL SQ SCH ×2 (06:09→18:55)
[2017-05-28] MEDS ORDERED: *HR* Labetalol 20 MG/4 ML SYRINGE IVP ONE (07:30)
[2017-05-28] MEDS ORDERED: *HR* Labetalol 20 MG/4 ML SYRINGE IVP PRN (07:30)
[2017-05-28] MEDS: Insulin LISPRO 300 UNITS/3 ML VIAL SQ SCH ×7 (08:07→22:23)
[2017-05-28] MEDS: Bisoprolol/HCTZ 10/6.25 TABLET PO SCH (09:31)
--- NOTE | 2017-05-28 15:11 | Internal Med Progress Note ---
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 CT head showed no acute abnormality. MRI brain has been ordered, which could not be completed while the patient was in ICU as she was noted to be uncooperative and agitated. Cultures remain negative. 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 MRI was able to be done after patient agitation resolved. 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 She is currently at baseline mental status. Neurology recommendations appreciated in regards to infarct. Dispo plan is recommend to complete IV acyclovir for 10 days for possible HSV encephalitis. Leukocytosis initially resolved, noted to be slightly worse today. Continue to monitor. Lumbar puncture could not be completed due to presence of hardware. (2) MALIK (acute kidney injury) Current Visit: Yes Status: Resolved Assessment and plan: Currently resolved. Serum creatinine at baseline. (3) Hypertension Current Visit: Yes Status: Chronic Assessment and plan: Continue losartan and Ziac. and discontinue hydralazine when necessary as patient is tachycardic. Will place patient on when necessary labetalol. Qualifiers: Hypertension type: essential hypertension Qualified Code(s): I10 - Essential (primary) hypertension (4) Lactic acidosis Current Visit: Yes Status: Resolved (5) Type 2 diabetes mellitus Current Visit: Yes Status: Chronic Assessment and plan: Hemoglobin A1c noted to be 12%. Continue basal insulin regimen, we will start nutritional insulin. Accu-Chek blood glucose monitoring. Diabetic diet. 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 No acute event. Her states she is at her baseline mental status. Patient states she feels a feels a little funny. Left- sided headache is improved but still there. She denies ears, chills nausea vomiting diarrhea constipation. - Constitutional Vitals: Temp Pulse Resp BP Pulse Ox 98.1 F 99 15 108/68 95 05/28/17 13:57 05/28/17 13:57 05/28/17 13:57 05/28/17 13:57 05/28/17 13:57 General appearance: Present: A&O X 3, answers questions appropriately Exam: CVS: RRR, positive S1/S2 Lungs: Clear to auscultation bilaterally Abdomen: Soft, nontender nondistended. Extremities: No edema. Internal Medicine: Result - Labs CBC & Chem 7: 05/28/17 03:17 05/28/17 03:17 Labs: Short CBC 05/28/17 Range/Units 03:17 WBC 12.5 H (4.3-11.1) K/mcL Hgb 13.5 (11.5-15.4) g/dL Hct 38.9 (35.3-44.9) % Plt Count 215 (140-400) K/mcL Neutrophils # 7.2 (1.6-8.9) K/mcL BMP 05/28/17 03:17 Sodium 139 Potassium 3.1 L D Chloride 103 Carbon Dioxide 21 BUN 7 Creatinine 0.87 Glucose 200 H Calcium 9.1 - ABG Interpretation ABG results: PT/INR, D-dimer PT 12.1 Seconds (9.4-12.1) 05/24/17 07:07 - Impressions Impressions Head MRA 05/27/17 09:55 IMPRESSION: 1. There is a punctate acute infarct noted in the left hippocampus, in the vascular distribution of the left posterior cerebral artery. 2. Moderate chronic microvascular white matter ischemic disease is noted supratentorially. 3. Unremarkable MRA of the brain. D/ / 05/27/2017 17:15:13 Philip Coughlin MD / [facility] Interpreting Provider: Philip Coughlin MD Neck MRA 05/27/17 09:55 IMPRESSION: No hemodynamically significant arterial stenosis in the neck. D/ / Shon Morelos MD / Shon Morelos MD Interpreting Provider: Shon Morelos MD Brain MRI 05/27/17 11:48 IMPRESSION: 1. There is a punctate acute infarct noted in the left hippocampus, in the vascular distribution of the left posterior cerebral artery. 2. Moderate chronic microvascular white matter ischemic disease is noted supratentorially. 3. Unremarkable MRA of the brain. D/ / 05/27/2017 17:15:13 Philip Coughlin MD / [facility] Interpreting Provider: Philip Coughlin MD Consult Discharge Plan - Plan Referrals: NONE,PCP [Primary Care Provider] -
--- NOTE | 2017-05-28 15:53 | Neurology Progress Note ---
Date of Encounter: 05/28/17 Time of Encounter: 15:51 Assessment and Plan (1) Acute encephalopathy Current Visit: Yes Status: Resolved My impressions at this point remain unchanged. She still has a slightly elevated white blood cell count, slight headache. MRI scan of the brain reveals a small punctate abnormality in the left hippocampus. My opinion this could be a very small punctate infarct however I am also suspicious of inflammation due to herpes encephalitis. Patient is hesitant to go through a lumbar puncture. If she does not go through the lumbar puncture this obligate her to 10 days of IV acyclovir. Otherwise she has had an MRI of the head which was negative, MRI of the neck was negative as well. I will recommend echocardiogram for completeness of stroke workup. Recommend maintaining statin therapy, antiplatelet therapy, and antihypertensive as needed. I will reevaluate her at your request. Subjective Principal diagnosis: Acute encephalopathy Interval history: Chart was reviewed, the patient was seen and examined. She still complains of a slight left temporal headache. Otherwise she is anxious for discharge. White blood cell count is still slightly elevated. From a neurologic perspective she still seems to be admitted off with regard to sensory processing. I did try to explain to her that if she does not get the lumbar puncture that she will be obligated to 10 days of intravenous acyclovir. Otherwise if she does get the LP and it is negative for an infectious or inflammatory process, then not need to complete 10 days of IV acyclovir. However her is not here and she wishes to consult with him regarding the lumbar puncture. I did recommend that she go through with the lumbar puncture so we might have a specific diagnosis. However she is hesitant. Objective - Constitutional Vitals: Temp Pulse Resp BP Pulse Ox 98.1 F 99 15 108/68 95 05/28/17 13:57 05/28/17 13:57 05/28/17 13:57 05/28/17 13:57 05/28/17 13:57 - Neurological Exam Motor Examination: Present: grossly full strength in all extremities, other ( Pt. moves all 4 extremities to noxious stim. No involuntary movements.) Sensation intact: Present: other (withdraws to tactile stim.) Posture: Present: other (No nuchal rigidity.) Mental Status Examination: Present: awake, alert, oriented to person, oriented to place, oriented to time, follows commands appropriately, answers questions appropriately, no agnosia, no aphasia, no aproxia Cranial nerve examination: Present: PERRL, EOMI (dolls eyes intact), visual sparks intact, corneal reflexes brisk symmetrically, sensory to face intact, mastication intact, no facial asymmetry is present, no dysarthria, hearing is intact symmetrically, soft palate elevates bilaterally upon phonation, gag reflex intact Additional comments: She is not lethargic, however she does seem to have a slight bit of difficulty with abstract and central processing. Results - Laboratory Findings CBC and BMP: 05/28/17 03:17 05/28/17 03:17 Abnormal lab findings: Abnormal lab results WBC 12.5 K/mcL (4.3-11.1) H 05/28/17 03:17 MPV 13.5 fL (9.4-12.4) H 05/28/17 03:17 Immature Plt Fraction 22.9 % (1.1-6.1) H 05/24/17 07:22 APTT 22.6 Seconds (26.0-36.0) L 05/24/17 07:07 VBG pH 7.48 pH Units (7.32-7.42) H 05/24/17 08:34 VBG pCO2 34 mmHg (41-51) L 05/24/17 08:34 VBG pO2 56 mmHg (25-50) H 05/24/17 08:34 Potassium 3.1 mEq/L (3.5-4.5) L D 05/28/17 03:17 Glucose 200 mg/dL (70-99) H 05/28/17 03:17 POC Glucose 148 (58-89) H 05/28/17 11:03 Hemoglobin A1c 12.0 % (-5.6) H 05/24/17 14:08 Ionized Calcium 1.03 mmol/L (1.15-1.35) L 05/26/17 03:16 AST 99 Units/L (5-34) H 05/26/17 03:16 Creatine Kinase 309 Units/L (29-168) H 05/24/17 14:08 Albumin 2.4 g/dL (3.5-5.0) L 05/26/17 03:16 Globulin 4.8 g/dL (2.4-3.5) H 05/26/17 03:16 Albumin/Globulin Ratio 0.5 (1.1-2.2) L 05/26/17 03:16 Beta-Hydroxybutyric Acd 0.30 mmol/L (0.02-0.27) H 05/24/17 08:24 TSH 14.628 mcIU/mL (0.350-4.840) H 05/24/17 14:08 Free T4 0.65 ng/dl (0.70-1.48) L 05/24/17 14:08 Ur Specific [place] > 1.030 (1.010-1.025) H 05/24/17 09:21 Urine Protein 30 mg/dL (Neg-Trace) H 05/24/17 09:21 Urine Glucose (UA) >=1000 mg/dL (Normal) H 05/24/17 09:21 Urine Ketones Trace mg/dL (Negative) H 05/24/17 09:21 Urine Bilirubin Small (Negative) H 05/24/17 09:21 Urine Microscopic WBC 3-5 per hpf (0-3) H 05/24/17 09:21 Vancomycin Trough 22.8 mcg/mL (10-20) H* 05/26/17 03:16 Urine Opiates Screen Positive ng/mL ([id number]) H 05/24/17 09:15 Consult Discharge Plan - Plan Referrals: NONE,PCP [Primary Care Provider] -
[2017-05-28] MEDS ORDERED: Insulin DETEMIR 100 UNIT/ML X5UNITS SQ SCH (21:00)
[2017-05-28] MEDS: Clotrimazole Vag CRM 45 GM TUBE VG SCH (22:24)
[2017-05-28] MEDS: Miconazole 2% cream 118 GM TUBE TP SCH (22:25)
[2017-05-29] MEDS: WATER IVPB SCH ×2 (00:23→12:19)
[2017-05-29] MEDS: D5 IVPB SCH ×2 (00:23→12:19)
[2017-05-29] MEDS: ACYCLOVIR IVPB SCH ×2 (00:23→12:19)
[2017-05-29] MEDS: cefTRIAXone 2,000 MG in Water for inj. (sterile) 20 ML IVP SCH ×2 (02:51→17:06)
[2017-05-29 03:44] LABS: Basophils # 0.1 K/mcL (0.0-0.2); Basophils % 0.7 %; Eosinophils # 0.3 K/mcL (0.0-0.6); Hematocrit 39.2 % (35.3-44.9); Hemoglobin 13.3 g/dL (11.5-15.4); Immature Granulocytes % 0.6 % (0-4); Lymphocytes # 4.8 K/mcL (0.6-4.6); Mean Corpuscular HGB Conc 33.9 g/dL (31.6-35.5); Mean Corpuscular Hemoglobin 31.7 pg (28.0-33.3); Mean Corpuscular Volume 93.3 fL (83.0-100.0); Mean Platelet Volume 12.7 fL (9.4-12.4); Monocytes # 1.1 K/mcL (0.0-1.3); Monocytes % 9.2 %; Platelet Count 223 K/mcL (140-400); Red Cell Distribution Width 14.3 % (11.5-14.5); Segmented Neutrophils % 48.5 %
[2017-05-29 03:52] LABS: BUN/Creatinine Ratio 9 (6-26); Blood Urea Nitrogen 8 mg/dL (7-20); Calcium 8.9 mg/dL (8.6-10.8); Carbon Dioxide 22 mEq/L (19-29); Chloride 106 mEq/L (98-109); Glucose 138 mg/dL (70-99); Osmolality,Calculated 289 (280-300); Potassium 3.1 mEq/L (3.5-4.5); Sodium 139 mEq/L (136-145); eGFR For African Americans > 60 (> 60); eGFR For Non-African Americans > 60 (> 60)
[2017-05-29] MEDS: *HR* Heparin 5,000 UNIT/ML VIAL SQ SCH (05:46)
[2017-05-29] MEDS: Bisoprolol/HCTZ 10/6.25 TABLET PO SCH (08:29)
[2017-05-29] MEDS: Insulin LISPRO 300 UNITS/3 ML VIAL SQ SCH ×6 (08:30→12:18)
[2017-05-29] MEDS: Vancomycin 1,250 MG in D5% in Water 250 ML IVPB SCH (11:08)
--- NOTE | 2017-05-29 14:42 | Internal Med Progress Note ---
Date of Encounter: 05/29/17 Time of Encounter: 14:40 - Assessment and plan (1) Acute encephalopathy Status: Resolved Assessment and plan: Suspiscious for HSV encephalitis. LP Today done, repeat MRI, discharge with IV Acyclovir. (2) MALIK (acute kidney injury) Status: Resolved Assessment and plan: Currently resolved. Serum creatinine at baseline. 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 - Constitutional Vitals: Temp Pulse Resp BP Pulse Ox 98.4 F 69 16 95/57 96 05/29/17 11:16 05/29/17 11:16 05/29/17 11:16 05/29/17 11:16 05/29/17 11:16 General appearance: Present: A&O X 3, answers questions appropriately Exam: CVS: RRR Lungs: CTAB Ext: no edema Neuro: no focal defecits, CN II-XII in tact Internal Medicine: Result - Labs CBC & Chem 7: 05/29/17 03:29 05/29/17 03:29 Labs: Short CBC 05/29/17 Range/Units 03:29 WBC 12.3 H (4.3-11.1) K/mcL Hgb 13.3 (11.5-15.4) g/dL Hct 39.2 (35.3-44.9) % Plt Count 223 (140-400) K/mcL Neutrophils # 6.0 (1.6-8.9) K/mcL BMP 05/29/17 03:29 Sodium 139 Potassium 3.1 L Chloride 106 Carbon Dioxide 22 BUN 8 Creatinine 0.88 Glucose 138 H Calcium 8.9 - ABG Interpretation ABG results: PT/INR, D-dimer PT 12.1 Seconds (9.4-12.1) 05/24/17 07:07 - Impressions Impressions Echocardiogram 05/28/17 00:00 Impressions: LVEF 60-65%. Normal LV chamber size and function. Mild concentric left ventricular hypertrophy. Mild left ventricular diastolic dysfunction. Normal right ventricular structure and function. No evidence of PFO with agitated saline contrast. No evidence of pulmonary hypertension. No significant valvular dysfunction. Left Ventricular Wall Motion: Rest Echo Findings All wall segments showed normal motion. Findings: Study Quality * Technically adequate exam. ECG Findings * Normal sinus rhythm. Left Ventricle * LVEF 60-65%. * Normal LV chamber size and function. * Mild concentric left ventricular hypertrophy. * Mild left ventricular diastolic dysfunction. Right Ventricle * Normal right ventricular structure and function. Left Atrium * Mildly dilated left atrium. Right Atrium * Normal right atrial size. Interatrial Septum * No evidence of PFO with agitated saline contrast. Aortic Valve * Trileaflet aortic valve. * No aortic regurgitation. * No aortic stenosis. Mitral Valve * Normal mitral valve structure and function. * No mitral regurgitation. * No mitral stenosis. Tricuspid Valve * Normal tricuspid valve structure and function. * Trace tricuspid regurgitation. * No evidence of pulmonary hypertension. Pulmonic Valve * Normal pulmonic valve structure and function. * No pulmonic regurgitation. Aorta * Normally sized aortic root. Pericardium * The pericardium appears normal. IVC * Normal IVC dimensions and inspiratory collapse. Pulmonary Artery * Normal visualized portions of the main pulmonary artery. Consult Discharge Plan - Plan Referrals: Carter Granados MD [Non-Partnered Physician] - 06/03/17 1:00 pm Javier Dillon DO [Partnered Physician] - (In 2 weeks WEB REQUEST - OFFICE WILL CALL WITH APPOINTMENT) Prescriptions: Atorvastatin [Lipitor] 10 mg PO QPM #30 tablet
[2017-05-29 16:13] VITALS: BP 128/76
[2017-05-29 16:25] LABS: Appearance,CSF Clear (Clear); Red Blood Cell,CSF < 0.002 M/mcL
[2017-05-29 16:48] LABS: Glucose,CSF 94 mg/dL (40-70); Total Protein,CSF 48 mg/dL (15-45)
--- NOTE | 2017-05-29 17:03 | Neurology Progress Note ---
Date of Encounter: 05/29/17 Time of Encounter: 17:01 Assessment and Plan (1) Acute encephalopathy Current Visit: Yes Status: Resolved Acute encephalopathy resolved; etiology not clearly identified however suspicion for possible HSV encephalitis, left temporal lobe infarct versus medication effect. I would like to follow up with her in my office one to 2 weeks after she is discharged. Recommend antiplatelet therapy upon discharge along with other medications pertinent for stroke risk factors. May discharge her tonight after her MRI scan. Subjective Principal diagnosis: Acute encephalopathy Interval history: The chart was reviewed, patient was seen and examined. She has had the lumbar puncture completed, and most of the preliminary results are in. White blood cell counts were normal, protein was essentially normal. There was no blood present in the cerebrospinal fluid. Gram stain is yet pending. At this point Renita is clinically improved. She will have an MRI scan of the brain sometime this evening and feels okay for her to be discharged home after the MRI of the brain. I maintain that she should continue 10 full days of IV acyclovir. She should maintain antiplatelet therapy after discharge along with risk factor management. I would like to follow up with her in my office in another week or 2. By the time she had a PCR back for the final diagnosis over the beginning with HSV encephalitis versus a small temporal lobe infarct. Objective - Constitutional Vitals: Temp Pulse Resp BP Pulse Ox 98.0 F 76 20 128/76 93 05/29/17 16:11 05/29/17 16:11 05/29/17 16:11 05/29/17 16:11 05/29/17 16:11 - Neurological Exam Motor Examination: Present: grossly full strength in all extremities, other ( Pt. moves all 4 extremities to noxious stim. No involuntary movements.) Sensation intact: Present: other (withdraws to tactile stim.) Posture: Present: other (No nuchal rigidity.) Mental Status Examination: Present: awake, alert, oriented to person, oriented to place, oriented to time, follows commands appropriately, answers questions appropriately, no agnosia, no aphasia, no aproxia Cranial nerve examination: Present: PERRL, EOMI (dolls eyes intact), visual sparks intact, corneal reflexes brisk symmetrically, sensory to face intact, mastication intact, no facial asymmetry is present, no dysarthria, hearing is intact symmetrically, soft palate elevates bilaterally upon phonation, gag reflex intact Results - Laboratory Findings CBC and BMP: 05/29/17 03:29 05/29/17 03:29 Abnormal lab findings: Abnormal lab results WBC 12.3 K/mcL (4.3-11.1) H 05/29/17 03:29 MPV 12.7 fL (9.4-12.4) H 05/29/17 03:29 Lymphocytes # 4.8 K/mcL (0.6-4.6) H 05/29/17 03:29 Immature Plt Fraction 22.9 % (1.1-6.1) H 05/24/17 07:22 APTT 22.6 Seconds (26.0-36.0) L 05/24/17 07:07 VBG pH 7.48 pH Units (7.32-7.42) H 05/24/17 08:34 VBG pCO2 34 mmHg (41-51) L 05/24/17 08:34 VBG pO2 56 mmHg (25-50) H 05/24/17 08:34 Potassium 3.1 mEq/L (3.5-4.5) L 05/29/17 03:29 Glucose 138 mg/dL (70-99) H 05/29/17 03:29 POC Glucose 206 (58-89) H 05/29/17 16:06 Hemoglobin A1c 12.0 % (-5.6) H 05/24/17 14:08 Ionized Calcium 1.03 mmol/L (1.15-1.35) L 05/26/17 03:16 AST 99 Units/L (5-34) H 05/26/17 03:16 Creatine Kinase 309 Units/L (29-168) H 05/24/17 14:08 Albumin 2.4 g/dL (3.5-5.0) L 05/26/17 03:16 Globulin 4.8 g/dL (2.4-3.5) H 05/26/17 03:16 Albumin/Globulin Ratio 0.5 (1.1-2.2) L 05/26/17 03:16 Beta-Hydroxybutyric Acd 0.30 mmol/L (0.02-0.27) H 05/24/17 08:24 TSH 14.628 mcIU/mL (0.350-4.840) H 05/24/17 14:08 Free T4 0.65 ng/dl (0.70-1.48) L 05/24/17 14:08 Ur Specific [place] > 1.030 (1.010-1.025) H 05/24/17 09:21 Urine Protein 30 mg/dL (Neg-Trace) H 05/24/17 09:21 Urine Glucose (UA) >=1000 mg/dL (Normal) H 05/24/17 09:21 Urine Ketones Trace mg/dL (Negative) H 05/24/17 09:21 Urine Bilirubin Small (Negative) H 05/24/17 09:21 Urine Microscopic WBC 3-5 per hpf (0-3) H 05/24/17 09:21 CSF Glucose 94 mg/dL (40-70) H 05/29/17 15:22 CSF Total Protein 48 mg/dL (15-45) H 05/29/17 15:22 Vancomycin Trough 22.8 mcg/mL (10-20) H* 05/26/17 03:16 Urine Opiates Screen Positive ng/mL ([id number]) H 05/24/17 09:15 Consult Discharge Plan - Plan Referrals: Carter Granados MD [Non-Partnered Physician] - 06/03/17 1:00 pm
--- NOTE | 2017-05-29 19:28 | Discharge Summary ---
Date of Encounter: 05/29/17 Time of Encounter: 19:24 - Discharge Diagnosis (1) Acute encephalopathy Priority: Primary Status: Resolved (2) MALIK (acute kidney injury) Priority: Secondary Status: Resolved (3) Hypertension Priority: Secondary Status: Chronic Qualifiers: Hypertension type: essential hypertension Qualified Code(s): I10 - Essential (primary) hypertension (4) Lactic acidosis Priority: Secondary Status: Resolved (5) Type 2 diabetes mellitus Priority: Secondary Status: Chronic Qualifiers: Diabetes mellitus complication status: with hyperglycemia Diabetes mellitus terminal operations supervisor insulin use: without terminal operations supervisor use Qualified Code(s): E11.65 - Type 2 diabetes mellitus with hyperglycemia - Discharge Medications Prescriptions: Atorvastatin [Lipitor] 10 mg PO QPM #30 tablet Home Medications: Bisoprolol/HCTZ 04/26.25 [Ziac ] 1 each PO DAILY 05/24/17 [History] Clopidogrel [Plavix] 75 mg PO DAILY 05/24/17 [History] Dicyclomine [Bentyl] 20 mg PO QID 05/24/17 [History] Gabapentin [Neurontin] 600 mg PO BID 05/24/17 [History] Levothyroxine [Synthroid] 150 mcg PO DAILY 05/24/17 [History] Losartan Potassium [Cozaar] 50 mg PO DAILY 05/24/17 [History] Omeprazole [PriLOSEC] 40 mg PO DAILY 05/24/17 [History] Pramipexole [Mirapex] 0.5 mg PO HS 05/24/17 [History] SitaGLIPtin [Januvia] 100 mg PO DAILY 05/24/17 [History] Atorvastatin [Lipitor] 10 mg PO QPM #30 tablet 05/29/17 [Rx] Clotrimazole Vag CRM [Gyne-Lotrimin Vag CRM] 1 appl VG HS cream 05/29/17 [Rx] Miconazole 2% cream [Remedy Antifungal] 1 appl TP HS tube 05/29/17 [Rx] Allergies/Adverse Reactions: 3 Allergy/AdvReac Type Severity Reaction Status Date / Time simvastatin Allergy Itching Verified 05/24/17 06:02 Sulfa (Sulfonamide Allergy Rash Verified 05/24/17 06:02 Antibiotics) brimonidine [From Alphagan P] AdvReac Blurry Verified 05/24/17 06:02 Vision lisinopril [From Prinivil] AdvReac Cough Verified 05/24/17 06:02 Topical Iodine Allergy Rash Uncoded 05/24/17 06:02 Procedures/tests Complete & Pending: Procedures Performed prior 72 hours Category Date Time Status MR angio head wo con [MR] Stat MRI 05/27/17 09:55 Completed MR angio neck wo/w con [MR] Stat MRI 05/27/17 09:55 Completed MR head/brain wo/w con [MR] Routine MRI 05/29/17 14:47 Taken MR head/brain wo/w con [MR] Stat MRI 05/27/17 11:48 Completed EV echocardiogram Routine Y 05/28/17 Completed Date of admission: 05/24/17 11:24 Primary care physician: PCP NONE Consults: 05/24/17 13:28 Consult to Neurology [CONS] Routine Consulting Provider: [facility] Reason for Consult: Encephalopathy Call Completed: Yes 05/29/17 08:11 Consult to Interventional Radiology [CONS] Routine Consulting Provider: Radiology Interventional Cols Reason for Consult: Lumbar Puncture Call Completed: No 05/29/17 12:46 Consult to Drill Foreman [CONS] Routine Reason for SW Consult: Needs Acyclovir IV upon discharge. Discharging clinician: Dimple Vazquez - Patient Status Disposition: Home Health Service Condition: Good Functional capacity at discharge: independent ambulation Overall status at discharge: patient is progressing back to baseline - Discharge Instructions Follow Up With: Carter Granados MD [Non-Partnered Physician] - 06/03/17 1:00 pm Javier Dillon DO [Partnered Physician] - (In 2 weeks WEB REQUEST - OFFICE WILL CALL WITH APPOINTMENT) - Diet and Activity Activity: increase activity as tolerated Diet: advance to your usual diet Hospital course: 71 year old female with history of TIA, hypertension, diabetes presented for a reported one day history of confusion and headache. She is usually able to maintain her own ADLs without issue. On presentation in ED she was alert but would not answer questions appropriately. A CT of head was done which was negative. Patient became increasingly combative in ED and required sedation. She required admission to ICU due to this agitation with required sedation. On day of admission, an MRI and lumbar puncture was unable to be done because of patient mental status, also was on Plavix. She was febrile and also had leukocytosis. There was concern for herpes encephalitis or other infectious causes and she was started on acyclovir and Rocephin and ampicillin. Patient received 3 L of IV fluid bolus in the emergency department. She was hyperglycemic requiring insulin for correction. Neurology was consulted to evaluate patient. There was still suspicion for HSV encephalitis and less so suspicion for bacterial meningitis. Vancomycin and ampicillin stopped and Rocephin started. 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 Her medication were optimized and BP monitored closely. An echocardiogram was negative for thrombi, PFO, and valvular dysfunction. 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 She did return to her baseline mental status but had residual headache which gradually resolved. On last day of admission, she did agree to an LP, and prelim results showed normal WBC and protein. No blood in CSF. She had a repeat MRI which no longer showed acute infarct including in left hippocampus. Her leukocytosis did improve to 12 and she remained afebrile post antiviral/ antibiotic treatment. She was discharged home in stable condition with IV acyclovir arranged for home to finish a total of days of treatment. She is agreeable to follow-up with Neurology in 2 weeks. By this time, PCR should return. - Time Spent with Patient Total time spent providing and/or coordinating discharge services: Greater than 30 minutes - Constitutional Vitals: Temp Pulse Resp BP Pulse Ox 98.0 F 76 20 128/76 93 05/29/17 16:11 05/29/17 16:11 05/29/17 16:11 05/29/17 16:11 05/29/17 16:11 General appearance: Present: A&O X 3, answers questions appropriately Exam: CVS: RRR, positive S1/S2 Lungs: Clear to auscultation bilaterally Abdomen: Soft, nontender nondistended. Extremities: No edema.
== END 2017-05-29 21:50 | disposition home health service (06) | DRG 871 ==
LOC: EMEROO 06:01 → SUATTDRO 11:24 → ICNU 11:24 → 3ANU 05-26 17:42
PROVIDERS: ADMIT Internal Medicine Hospice and Palliative Medicine; ATTEND Student in an Organized Health Care Education/Training Program

== ENCOUNTER 2020-01-08 09:53 | Inpatient (IN) ==
[2020-01-08] MEDS ORDERED: 0.9 % Sodium Chloride 1,000 ML IV ONE (10:40)
[2020-01-08 10:50] LABS: Basophils # 0.1 K/mcL (0.0-0.2); Eosinophils # 0.1 K/mcL (0.0-0.6); Hematocrit 36.9 % (35.3-44.9); Hemoglobin 11.9 g/dL (11.5-15.4); Immature Granulocytes % 0.3 % (0-4); Lymphocytes # 2.2 K/mcL (0.6-4.6); Lymphocytes % 23.6 %; Mean Corpuscular HGB Conc 32.2 g/dL (31.6-35.5); Mean Corpuscular Hemoglobin 32.2 pg (28.0-33.3); Mean Corpuscular Volume 99.7 fL (83.0-100.0); Monocytes # 0.7 K/mcL (0.0-1.3); Monocytes % 7.2 %; Neutrophils # 6.3 K/mcL (1.6-8.9); Platelet Count 267 K/mcL (140-400); Red Cell Distribution Width 14.3 % (11.5-14.5); Segmented Neutrophils % 66.9 %; White Blood Count 9.3 K/mcL (4.3-11.1)
[2020-01-08 10:52] LABS: INR 1.2; Prothrombin Time 13.6 Seconds (9.4-12.1)
[2020-01-08 10:54] LABS: Activated Partial Thrombo Time 27.7 Seconds (26.0-36.0)
[2020-01-08 11:20] LABS: Albumin 3.1 g/dL (3.5-5.7); Albumin/Globulin Ratio 0.7 (1.1-2.2); Bilirubin,Total 0.8 mg/dL (0.3-1.0); Calcium 8.7 mg/dL (8.6-10.3); Globulin 4.5 g/dL (2.4-3.5); Potassium 3.7 mEq/L (3.5-5.1); Total Protein 7.6 g/dL (6.4-8.9); Troponin I 0.12 ng/mL (< 0.04)
[2020-01-08] MEDS ORDERED: *HR* Heparin 5,000 UNIT/ML VIAL IVP PRN ×2 (12:07)
[2020-01-08] MEDS ORDERED: *HR* Heparin 5,000 UNIT/ML VIAL IVP ONE (12:07)
[2020-01-08] MEDS ORDERED: Naloxone 0.4 MG/ML INJ IVP PRN (12:24)
[2020-01-08] MEDS ORDERED: Ondansetron 4 MG/2 ML VIAL IVP PRN (12:24)
[2020-01-08] MEDS ORDERED: Acetaminophen 325 MG TABLET PO PRN (12:24)
[2020-01-08 12:34] LABS: Bilirubin,Urine Negative (Negative); Blood,Urine Negative (Negative); Clarity,Urine Clear (Clear); Color,Urine Yellow (Yellow); Glucose,Urine (UA) Normal (Normal); Hyaline Casts,Urine Few per lpf (None Seen); Ketones,Urine Negative (Negative); Leukocyte Esterase,Urine Moderate (Negative); Mucus,Urine Few per lpf (None-Few); Nitrite,Urine Negative (Negative); Protein,Urine 100 mg/dL (Neg-Trace); RBC,Urine 0-3 per hpf (0-3); Renal Epithelial Cells,Urine Few per hpf (None-Few); Specific Gravity,Urine 1.018 (1.010-1.025); Squamous Epithelial Cell,Urine Few per hpf (None-Few); Transitional Epi Cells,Urine Few per hpf (None-Few); Urobilinogen,Urine Normal (Normal); WBC,Urine 50-100 per hpf (0-3)
[2020-01-08] MEDS: Heparin 25,000 UNIT/250 ML D5W 25,000 UNIT/250 ML IV.SOLN IVC SCH (13:21)
[2020-01-08] MEDS ORDERED: *HR* EPINEPHrine 1 MG/10 ML SYRINGE ONE (16:29)
[2020-01-08] MEDS ORDERED: Lidocaine -MPF 2% 5 ML VIAL ONE (16:31)
[2020-01-08] MEDS: Aspirin 81 MG TAB.CHEW PO SCH (16:52)
[2020-01-08] MEDS ORDERED: Ringers Solution, Lactated 1,000 ML IVC SCH (17:15)
[2020-01-08] MEDS ORDERED: Perflutren Lipid Microsphere 1.3 ML in 0.9 % Sodium Chloride 8.7 ML IVP ONE (19:02)
[2020-01-08] MEDS ORDERED: D5% in Water 1,000 ML IVC PRN (19:55)
[2020-01-08] MEDS ORDERED: Dextrose Gel 15 GM/37.5 ML TUBE PO PRN ×2 (19:55)
[2020-01-08] MEDS ORDERED: *HR* Dextrose 50 % in Water (Vial) 50 ML VIAL IVP PRN (19:55)
[2020-01-08] MEDS: Insulin LISPRO 300 UNITS/3 ML VIAL SQ SCH (21:16)
[2020-01-08] MEDS: Furosemide 40 MG/4 ML VIAL IVP SCH (21:16)
[2020-01-09 03:56] LABS: Basophils # 0.1 K/mcL (0.0-0.2); Basophils % 0.8 %; Eosinophils # 0.2 K/mcL (0.0-0.6); Eosinophils % 1.5 %; Hematocrit 36.5 % (35.3-44.9); Hemoglobin 11.5 g/dL (11.5-15.4); Immature Granulocytes % 0.3 % (0-4); Lymphocytes # 3.5 K/mcL (0.6-4.6); Lymphocytes % 35.2 %; Mean Corpuscular HGB Conc 31.5 g/dL (31.6-35.5); Mean Corpuscular Hemoglobin 31.6 pg (28.0-33.3); Mean Corpuscular Volume 100.3 fL (83.0-100.0); Mean Platelet Volume 11.3 fL (9.4-12.4); Monocytes # 0.7 K/mcL (0.0-1.3); Monocytes % 6.6 %; Neutrophils # 5.5 K/mcL (1.6-8.9); Platelet Count 250 K/mcL (140-400); Red Blood Count 3.64 M/mcL (3.82-4.97); Red Cell Distribution Width 14.3 % (11.5-14.5); Segmented Neutrophils % 55.6 %; White Blood Count 9.9 K/mcL (4.3-11.1)
[2020-01-09 04:09] LABS: Calcium 8.8 mg/dL (8.6-10.3); Magnesium 1.7 mg/dL (1.6-2.6); Potassium 3.4 mEq/L (3.5-5.1)
[2020-01-09] MEDS ORDERED: Levalbuterol Neb 0.63 MG/3 ML IH PRN (07:24)
[2020-01-09] MEDS: Insulin LISPRO 300 UNITS/3 ML VIAL SQ SCH ×4 (08:44→20:28)
[2020-01-09] MEDS: Furosemide 40 MG/4 ML VIAL IVP SCH (08:50)
[2020-01-09] MEDS: Gabapentin 300 MG CAPSULE PO SCH ×2 (08:50→20:27)
[2020-01-09] MEDS: Aspirin 81 MG TAB.CHEW PO SCH (08:51)
[2020-01-09] MEDS: Heparin 25,000 UNIT/250 ML D5W 25,000 UNIT/250 ML IV.SOLN IVC SCH (12:41)
[2020-01-09 14:46] LABS: Estimated Average Glucose 197 mg/dl
[2020-01-10 01:41] LABS: Basophils # 0.1 K/mcL (0.0-0.2); Eosinophils # 0.3 K/mcL (0.0-0.6); Eosinophils % 3.5 %; Hematocrit 36.1 % (35.3-44.9); Hemoglobin 11.7 g/dL (11.5-15.4); Immature Granulocytes % 0.5 % (0-4); Mean Corpuscular HGB Conc 32.4 g/dL (31.6-35.5); Mean Corpuscular Hemoglobin 32.8 pg (28.0-33.3); Mean Corpuscular Volume 101.1 fL (83.0-100.0); Mean Platelet Volume 11.4 fL (9.4-12.4); Monocytes # 0.5 K/mcL (0.0-1.3); Monocytes % 5.9 %; Neutrophils # 5.2 K/mcL (1.6-8.9); Platelet Count 245 K/mcL (140-400); Red Blood Count 3.57 M/mcL (3.82-4.97); Red Cell Distribution Width 14.3 % (11.5-14.5); Segmented Neutrophils % 56.1 %; White Blood Count 9.2 K/mcL (4.3-11.1)
[2020-01-10 02:03] LABS: Calcium 8.7 mg/dL (8.6-10.3); Magnesium 1.7 mg/dL (1.6-2.6); Potassium 3.7 mEq/L (3.5-5.1)
[2020-01-10] MEDS ORDERED: *HR* LORazepam 2 MG/ML VIAL IVP ONE (03:22)
[2020-01-10] MEDS: Gabapentin 300 MG CAPSULE PO SCH ×2 (09:51→20:48)
[2020-01-10] MEDS: Aspirin Enteric Coated 81 MG Tablet PO SCH (09:52)
[2020-01-10] MEDS: Insulin DETEMIR 100 UNIT/ML X5UNITS SQ SCH (09:52)
[2020-01-10] MEDS: Insulin LISPRO 300 UNITS/3 ML VIAL SQ SCH ×4 (09:52→20:48)
[2020-01-10] MEDS: *HR* Heparin 5,000 UNIT/ML VIAL SQ SCH (16:46)
[2020-01-11 00:21] LABS: ABG Base Excess -1 mEq/L (-2 to 3); ABG HCO3 26 mEq/L (21-27); ABG Oxygen Saturation 96 % (95-98); ABG PCO2 50 mmHg (35-45); ABG PH 7.32 pH Units (7.32-7.45); ABG PO2 92 mmHg (85-104); ABG TCO2 27 mEq/L (20-26)
[2020-01-11 00:58] LABS: INR 1.2; Prothrombin Time 13.5 Seconds (9.4-12.1)
[2020-01-11 01:00] LABS: Basophils # 0.1 K/mcL (0.0-0.2); Basophils % 1.2 %; Eosinophils # 0.2 K/mcL (0.0-0.6); Eosinophils % 1.7 %; Hematocrit 40.1 % (35.3-44.9); Hemoglobin 12.3 g/dL (11.5-15.4); Immature Granulocytes % 0.4 % (0-4); Lymphocytes # 2.9 K/mcL (0.6-4.6); Lymphocytes % 31.8 %; Mean Corpuscular HGB Conc 30.7 g/dL (31.6-35.5); Mean Corpuscular Hemoglobin 32.7 pg (28.0-33.3); Mean Corpuscular Volume 106.6 fL (83.0-100.0); Mean Platelet Volume 11.9 fL (9.4-12.4); Monocytes # 0.9 K/mcL (0.0-1.3); Monocytes % 9.5 %; Neutrophils # 5.1 K/mcL (1.6-8.9); Platelet Count 233 K/mcL (140-400); Red Blood Count 3.76 M/mcL (3.82-4.97); Red Cell Distribution Width 14.8 % (11.5-14.5); Segmented Neutrophils % 55.4 %; White Blood Count 9.2 K/mcL (4.3-11.1)
[2020-01-11 01:10] LABS: Calcium 8.9 mg/dL (8.6-10.3); Magnesium 1.9 mg/dL (1.6-2.6); Potassium 4.1 mEq/L (3.5-5.1)
[2020-01-11 01:10] LABS: Bacteria,Urine Few per hpf (None-Few); Bilirubin,Urine Negative (Negative); Blood,Urine Small (Negative); Clarity,Urine Clear (Clear); Color,Urine Yellow (Yellow); Glucose,Urine (UA) Normal (Normal); Hyaline Casts,Urine Few per lpf (None Seen); Ketones,Urine Negative (Negative); Leukocyte Esterase,Urine Negative (Negative); Mucus,Urine Few per lpf (None-Few); Nitrite,Urine Negative (Negative); PH,Urine 5.5 pH Units (5.0-8.0); Protein,Urine 30 mg/dL (Neg-Trace); RBC,Urine 15-30 per hpf (0-3); Specific Gravity,Urine 1.018 (1.010-1.025); Squamous Epithelial Cell,Urine Few per hpf (None-Few)
[2020-01-11] MEDS ORDERED: Piperacillin/Tazobactam 3.375 GM in 0.9 % Sodium Chloride Mini Bag 100 ML IVPB SCH (01:19)
[2020-01-11] MEDS ORDERED: *HR* LORazepam 2 MG/ML VIAL IVP ONE (01:22)
[2020-01-11] MEDS: *HR* Heparin 5,000 UNIT/ML VIAL SQ SCH ×2 (05:10→16:54)
[2020-01-11] MEDS: Insulin LISPRO 300 UNITS/3 ML VIAL SQ SCH ×4 (07:31→21:04)
[2020-01-11] MEDS: cefTRIAXone 1,000 MG in Water for inj. (sterile) 10 ML IVP SCH (09:00)
[2020-01-11 09:57] LABS: Albumin 3.2 g/dL (3.5-5.7); Albumin/Globulin Ratio 0.7 (1.1-2.2); Bilirubin,Direct 0.4 mg/dL (0.0-0.2); Bilirubin,Indirect 0.4 mg/dL (0.0-1.0); Bilirubin,Total 0.8 mg/dL (0.3-1.0); Globulin 4.7 g/dL (2.4-3.5); Total Protein 7.9 g/dL (6.4-8.9)
[2020-01-11] MEDS ORDERED: Haloperidol Lactate 5 MG/ML VIAL IVP ONE (11:36)
[2020-01-11] MEDS ORDERED: Bisacodyl 10 MG RECTAL SUPPOSITORY RC PRN (12:52)
[2020-01-11] MEDS: Insulin DETEMIR 100 UNIT/ML X5UNITS SQ SCH (13:26)
[2020-01-11] MEDS: Aspirin Enteric Coated 81 MG Tablet PO SCH (13:26)
[2020-01-11] MEDS: Albumin 25% 25gram/100mL 25 GM/100 ML IV.SOLN IVPB SCH (18:32)
[2020-01-11] MEDS ORDERED: Milk and Molasses Enema 200 ML RC ONE (20:00)
[2020-01-11] MEDS: QUEtiapine Fumarate 25 MG TABLET PO SCH (20:51)
[2020-01-12 01:01] LABS: Basophils # 0.1 K/mcL (0.0-0.2); Basophils % 0.7 %; Eosinophils # 0.1 K/mcL (0.0-0.6); Eosinophils % 1.4 %; Hemoglobin 11.6 g/dL (11.5-15.4); Immature Granulocytes % 0.4 % (0-4); Lymphocytes # 1.6 K/mcL (0.6-4.6); Lymphocytes % 16.2 %; Mean Corpuscular HGB Conc 31.4 g/dL (31.6-35.5); Mean Corpuscular Hemoglobin 32.7 pg (28.0-33.3); Mean Corpuscular Volume 104.2 fL (83.0-100.0); Mean Platelet Volume 11.4 fL (9.4-12.4); Monocytes # 0.8 K/mcL (0.0-1.3); Neutrophils # 7.2 K/mcL (1.6-8.9); Nucleated Red Blood Cells 0.4 /100 WBC (0); Platelet Count 249 K/mcL (140-400); Red Blood Count 3.55 M/mcL (3.82-4.97); Red Cell Distribution Width 14.7 % (11.5-14.5); Segmented Neutrophils % 73.3 %; White Blood Count 9.8 K/mcL (4.3-11.1)
[2020-01-12 01:45] LABS: Folate > 22.3 ng/mL (3.0-16.0); Vitamin B12 1390 pg/mL (250-1100)
[2020-01-12 02:00] LABS: Calcium 8.5 mg/dL (8.6-10.3); Potassium 4.5 mEq/L (3.5-5.1)
[2020-01-12] MEDS: *HR* Heparin 5,000 UNIT/ML VIAL SQ SCH ×2 (05:21→18:20)
[2020-01-12] MEDS: Albumin 25% 25gram/100mL 25 GM/100 ML IV.SOLN IVPB SCH ×2 (05:22→17:16)
[2020-01-12] MEDS: Insulin LISPRO 300 UNITS/3 ML VIAL SQ SCH ×4 (08:13→21:03)
[2020-01-12] MEDS: Aspirin Enteric Coated 81 MG Tablet PO SCH (08:55)
[2020-01-12] MEDS: cefTRIAXone 1,000 MG in Water for inj. (sterile) 10 ML IVP SCH (08:55)
[2020-01-12 10:12] LABS: Uric Acid 11.4 mg/dL (2.3-7.6)
[2020-01-12] MEDS ORDERED: Milrinone Premix 20 MG/100 ML 20 MG/100 ML BAG IVC SCH (13:30)
[2020-01-12] MEDS ORDERED: Haloperidol Lactate 5 MG/ML VIAL IVP STA (14:11)
[2020-01-12 14:54] LABS: Protein/Creatinine Ratio,Urine 0.91 mg/mg (0.00-0.20); Sodium, Urine 25.6 mEq/L
[2020-01-12] MEDS: Furosemide 240 MG in 0.9 % Sodium Chloride 96 ML IVC SCH (15:55)
[2020-01-12] MEDS: Milrinone Premix 20 MG/100 ML 20 MG/100 ML BAG IVC SCH (16:57)
[2020-01-12] MEDS: QUEtiapine Fumarate 25 MG TABLET PO SCH (21:00)
[2020-01-13 04:02] LABS: Basophils # 0.1 K/mcL (0.0-0.2); Basophils % 0.9 %; Eosinophils # 0.2 K/mcL (0.0-0.6); Eosinophils % 2.3 %; Hematocrit 36.6 % (35.3-44.9); Immature Granulocytes % 0.5 % (0-4); Lymphocytes # 3.3 K/mcL (0.6-4.6); Lymphocytes % 33.6 %; Mean Corpuscular HGB Conc 32.8 g/dL (31.6-35.5); Mean Corpuscular Hemoglobin 32.3 pg (28.0-33.3); Mean Corpuscular Volume 98.7 fL (83.0-100.0); Mean Platelet Volume 12.1 fL (9.4-12.4); Monocytes % 10.8 %; Platelet Count 253 K/mcL (140-400); Red Blood Count 3.71 M/mcL (3.82-4.97); Red Cell Distribution Width 14.5 % (11.5-14.5); Segmented Neutrophils % 51.9 %; White Blood Count 9.7 K/mcL (4.3-11.1)
[2020-01-13 04:16] LABS: Calcium 8.9 mg/dL (8.6-10.3); Phosphorous 3.6 mg/dL (2.7-4.5)
[2020-01-13] MEDS: *HR* Heparin 5,000 UNIT/ML VIAL SQ SCH ×2 (06:45→17:01)
[2020-01-13] MEDS: Albumin 25% 25gram/100mL 25 GM/100 ML IV.SOLN IVPB SCH ×2 (06:45→17:01)
[2020-01-13] MEDS: Insulin LISPRO 300 UNITS/3 ML VIAL SQ SCH ×4 (08:51→19:53)
[2020-01-13] MEDS: Aspirin Enteric Coated 81 MG Tablet PO SCH (08:52)
[2020-01-13] MEDS: cefTRIAXone 1,000 MG in Water for inj. (sterile) 10 ML IVP SCH (08:52)
[2020-01-13] MEDS: Insulin DETEMIR 100 UNIT/ML X5UNITS SQ SCH (09:36)
[2020-01-13] MEDS: Milrinone Premix 20 MG/100 ML 20 MG/100 ML BAG IVC SCH (19:42)
[2020-01-13] MEDS: QUEtiapine Fumarate 25 MG TABLET PO SCH (19:51)
[2020-01-14 05:35] LABS: Calcium 9.9 mg/dL (8.6-10.3)
[2020-01-14] MEDS: *HR* Heparin 5,000 UNIT/ML VIAL SQ SCH ×2 (06:40→17:07)
[2020-01-14] MEDS: Insulin LISPRO 300 UNITS/3 ML VIAL SQ SCH ×4 (07:51→21:09)
[2020-01-14] MEDS: Aspirin Enteric Coated 81 MG Tablet PO SCH (07:55)
[2020-01-14] MEDS: Furosemide 240 MG in 0.9 % Sodium Chloride 96 ML IVC SCH (11:36)
[2020-01-14] MEDS: Furosemide 40 MG/4 ML VIAL IVP SCH (16:00)
[2020-01-14] MEDS: carvediloL 6.25 MG TABLET PO SCH (16:00)
[2020-01-14] MEDS: QUEtiapine Fumarate 25 MG TABLET PO SCH (21:22)
[2020-01-14 21:50] LABS: Calcium 10.2 mg/dL (8.6-10.3); Potassium 3.4 mEq/L (3.5-5.1)
[2020-01-15] MEDS ORDERED: Haloperidol Lactate 5 MG/ML VIAL IVP ONE (03:05)
[2020-01-15] MEDS ORDERED: *HR* LORazepam 2 MG/ML VIAL IVP ONE (03:57)
[2020-01-15] MEDS ORDERED: *HR* LORazepam 2 MG/ML VIAL ONE (04:01)
[2020-01-15 05:04] LABS: Calcium 9.9 mg/dL (8.6-10.3); Potassium 3.8 mEq/L (3.5-5.1)
[2020-01-15] MEDS: *HR* Heparin 5,000 UNIT/ML VIAL SQ SCH ×2 (05:51→17:14)
[2020-01-15] MEDS: Insulin LISPRO 300 UNITS/3 ML VIAL SQ SCH ×4 (07:30→20:59)
[2020-01-15] MEDS: Furosemide 40 MG/4 ML VIAL IVP SCH (07:51)
[2020-01-15] MEDS: Aspirin Enteric Coated 81 MG Tablet PO SCH (07:54)
[2020-01-15] MEDS: carvediloL 6.25 MG TABLET PO SCH ×2 (07:55→17:14)
[2020-01-15] MEDS ORDERED: Spironolactone 25 MG TABLET PO SCH (09:00)
[2020-01-15] MEDS: QUEtiapine Fumarate 25 MG TABLET PO SCH (20:59)
[2020-01-16] MEDS: *HR* Heparin 5,000 UNIT/ML VIAL SQ SCH ×2 (05:46→18:16)
[2020-01-16 09:26] LABS: Calcium 10.2 mg/dL (8.6-10.3); Phosphorous 3.5 mg/dL (2.7-4.5); Potassium 3.9 mEq/L (3.5-5.1)
[2020-01-16 09:27] LABS: Calcium 10.3 mg/dL (8.6-10.3); Potassium 4.1 mEq/L (3.5-5.1)
[2020-01-16] MEDS: carvediloL 6.25 MG TABLET PO SCH ×2 (09:29→18:16)
[2020-01-16] MEDS: Aspirin Enteric Coated 81 MG Tablet PO SCH (09:29)
[2020-01-16] MEDS: Insulin LISPRO 300 UNITS/3 ML VIAL SQ SCH ×4 (09:31→21:02)
[2020-01-16] MEDS ORDERED: Insulin DETEMIR 100 UNIT/ML X5UNITS SQ SCH (12:15)
[2020-01-16] MEDS: QUEtiapine Fumarate 25 MG TABLET PO SCH (20:52)
[2020-01-17] MEDS ORDERED: *HR* LORazepam 2 MG/ML VIAL IM STA (03:21)
[2020-01-17] MEDS ORDERED: Haloperidol Lactate 5 MG/ML VIAL IVP ONE (03:58)
[2020-01-17] MEDS: *HR* Heparin 5,000 UNIT/ML VIAL SQ SCH (05:46)
[2020-01-17 06:32] LABS: Basophils # 0.1 K/mcL (0.0-0.2); Basophils % 1.1 %; Eosinophils # 0.4 K/mcL (0.0-0.6); Eosinophils % 4.8 %; Hematocrit 43.6 % (35.3-44.9); Hemoglobin 14.2 g/dL (11.5-15.4); Immature Granulocytes % 0.3 % (0-4); Lymphocytes # 2.7 K/mcL (0.6-4.6); Lymphocytes % 35.9 %; Mean Corpuscular HGB Conc 32.6 g/dL (31.6-35.5); Mean Corpuscular Hemoglobin 31.9 pg (28.0-33.3); Mean Platelet Volume 11.4 fL (9.4-12.4); Monocytes % 12.9 %; Neutrophils # 3.4 K/mcL (1.6-8.9); Platelet Count 310 K/mcL (140-400); Red Blood Count 4.45 M/mcL (3.82-4.97); Red Cell Distribution Width 14.6 % (11.5-14.5); White Blood Count 7.5 K/mcL (4.3-11.1)
[2020-01-17 06:51] LABS: Calcium 10.4 mg/dL (8.6-10.3); Potassium 3.8 mEq/L (3.5-5.1)
[2020-01-17 07:41] VITALS: BP 147/90
[2020-01-17] MEDS ORDERED: Insulin LISPRO 300 UNITS/3 ML VIAL SQ SCH (08:00)
[2020-01-17] MEDS ORDERED: carvediloL 6.25 MG TABLET PO SCH (08:00)
[2020-01-17] MEDS: Aspirin Enteric Coated 81 MG Tablet PO SCH (08:35)
[2020-01-17] MEDS: Insulin LISPRO 300 UNITS/3 ML VIAL SQ SCH (08:41)
== END 2020-01-17 09:25 | disposition left against medical advice (07) | DRG 280 ==
LOC: EMEROOARM 09:53 → 2ANU 09:53 → SUATTDRO 15:53 → 2ANU 16:48 → SUATTDRO 01-09 10:45 → 2NNU 01-12 15:52 → 3ANU 01-15 13:54
PROVIDERS: ADMIT Pharmacist; ATTEND Internal Medicine

== ENCOUNTER 2020-01-26 16:45 | Inpatient (IN) ==
[2020-01-26] MEDS ORDERED: *HR* Dextrose 50 % in Water (Vial) 50 ML VIAL ONE (17:15)
[2020-01-26] MEDS ORDERED: *HR* Dextrose 50 % in Water (Vial) 50 ML VIAL IVP ONE (17:22)
[2020-01-26 17:32] LABS: Basophils # 0.1 K/mcL (0.0-0.2); Basophils % 0.9 %; Eosinophils # 0.2 K/mcL (0.0-0.6); Eosinophils % 1.8 %; Hematocrit 38.2 % (35.3-44.9); Hemoglobin 12.1 g/dL (11.5-15.4); Immature Granulocytes % 0.5 % (0-4); Lymphocytes # 1.9 K/mcL (0.6-4.6); Lymphocytes % 18.6 %; Mean Corpuscular HGB Conc 31.7 g/dL (31.6-35.5); Mean Corpuscular Volume 101.1 fL (83.0-100.0); Mean Platelet Volume 12.1 fL (9.4-12.4); Monocytes # 0.8 K/mcL (0.0-1.3); Monocytes % 7.2 %; Neutrophils # 7.4 K/mcL (1.6-8.9); Platelet Count 241 K/mcL (140-400); Red Blood Count 3.78 M/mcL (3.82-4.97); Red Cell Distribution Width 14.2 % (11.5-14.5); White Blood Count 10.4 K/mcL (4.3-11.1)
[2020-01-26 17:51] LABS: Albumin 3.6 g/dL (3.5-5.7); Albumin/Globulin Ratio 0.8 (1.1-2.2); Bilirubin,Total 0.5 mg/dL (0.3-1.0); Calcium 8.8 mg/dL (8.6-10.3); Globulin 4.7 g/dL (2.4-3.5); Potassium 3.3 mEq/L (3.5-5.1); Total Protein 8.3 g/dL (6.4-8.9)
[2020-01-26 17:57] LABS: INR 1.1; Prothrombin Time 12.5 Seconds (9.4-12.1)
[2020-01-26 17:59] LABS: Activated Partial Thrombo Time 28.1 Seconds (26.0-36.0)
[2020-01-26 18:01] LABS: Bilirubin,Direct 0.1 mg/dL (0.0-0.2); Bilirubin,Indirect 0.4 mg/dL (0.0-1.0)
[2020-01-26 18:07] LABS: Troponin I 0.05 ng/mL (< 0.04)
[2020-01-26 18:19] LABS: Thyroid Stimulating Hormone 17.558 mcIU/mL (0.340-5.600)
[2020-01-26 18:29] LABS: Bacteria,Urine Few per hpf (None-Few); Bilirubin,Urine Negative (Negative); Blood,Urine Negative (Negative); Clarity,Urine Clear (Clear); Color,Urine Yellow (Yellow); Glucose,Urine (UA) 100 mg/dL (Normal); Hyaline Casts,Urine Many per lpf (None Seen); Ketones,Urine Negative (Negative); Leukocyte Esterase,Urine Large (Negative); Mucus,Urine Few per lpf (None-Few); Nitrite,Urine Negative (Negative); Protein,Urine 100 mg/dL (Neg-Trace); Renal Epithelial Cells,Urine Few per hpf (None-Few); Specific Gravity,Urine 1.021 (1.010-1.025); Squamous Epithelial Cell,Urine Moderate per hpf (None-Few); Transitional Epi Cells,Urine Few per hpf (None-Few); Urobilinogen,Urine Normal (Normal); WBC,Urine 50-100 per hpf (0-3)
[2020-01-26 18:29] LABS: Amphetamine Screen,Urine Negative ng/mL (Cutoff=1000); Barbiturate Screen,Urine Negative ng/mL (Cutoff=200); Benzodiazepines Screen,Urine Negative ng/mL (Cutoff=200); Cannabinoid Screen,Urine Negative ng/mL (Cutoff = 50); Cocaine Screen,Urine Negative ng/mL (Cutoff= 300); Opiate Screen,Urine Negative ng/mL (Cutoff=300); Phencyclidine Screen,Urine Negative ng/mL (Cutoff=25)
[2020-01-26] MEDS ORDERED: cefTRIAXone 1,000 MG in Water for inj. (sterile) 10 ML IVP ONE (19:20)
[2020-01-26] MEDS ORDERED: Naloxone 0.4 MG/ML INJ IVP PRN (20:02)
[2020-01-26] MEDS ORDERED: Dextrose Gel 15 GM/37.5 ML TUBE PO PRN ×2 (23:50)
[2020-01-26] MEDS ORDERED: *HR* Dextrose 50 % in Water (Vial) 50 ML VIAL IVP PRN (23:50)
[2020-01-26] MEDS ORDERED: D5% in Water 1,000 ML IVC PRN (23:50)
[2020-01-27] MEDS ORDERED: D5% in 0.45% NACL 1,000 ML IVC SCH (00:15)
[2020-01-27] MEDS: carvediloL 6.25 MG TABLET PO SCH ×2 (07:50→16:31)
[2020-01-27] MEDS: Aspirin Enteric Coated 81 MG Tablet PO SCH (07:50)
[2020-01-27] MEDS: Insulin LISPRO 300 UNITS/3 ML VIAL SQ SCH ×3 (09:13→16:10)
[2020-01-27 10:01] LABS: Basophils # 0.1 K/mcL (0.0-0.2); Basophils % 0.9 %; Eosinophils # 0.1 K/mcL (0.0-0.6); Eosinophils % 1.8 %; Hematocrit 35.4 % (35.3-44.9); Hemoglobin 11.2 g/dL (11.5-15.4); Immature Granulocytes % 0.3 % (0-4); Lymphocytes # 2.4 K/mcL (0.6-4.6); Mean Corpuscular HGB Conc 31.6 g/dL (31.6-35.5); Mean Corpuscular Volume 101.1 fL (83.0-100.0); Mean Platelet Volume 12.2 fL (9.4-12.4); Monocytes # 0.6 K/mcL (0.0-1.3); Monocytes % 8.6 %; Neutrophils # 3.7 K/mcL (1.6-8.9); Platelet Count 214 K/mcL (140-400); Red Cell Distribution Width 14.4 % (11.5-14.5); Segmented Neutrophils % 53.4 %; White Blood Count 6.8 K/mcL (4.3-11.1)
[2020-01-27 10:21] LABS: Potassium 4.3 mEq/L (3.5-5.1)
[2020-01-27 10:22] LABS: Albumin 3.1 g/dL (3.5-5.7); Albumin/Globulin Ratio 0.7 (1.1-2.2); Bilirubin,Total 0.5 mg/dL (0.3-1.0); Calcium 8.8 mg/dL (8.6-10.3); Globulin 4.2 g/dL (2.4-3.5); Total Protein 7.3 g/dL (6.4-8.9)
[2020-01-27 10:35] LABS: Triiodothyronine (T3) Free 2.28 pg/mL (2.50-3.90)
[2020-01-27] MEDS: *HR* Heparin 5,000 UNIT/ML VIAL SQ SCH ×2 (14:40→21:00)
[2020-01-27] MEDS ORDERED: cefTRIAXone 1,000 MG in 0.9 % Sodium Chloride Mini Bag 100 ML IVPB SCH (16:00)
[2020-01-27] MEDS ORDERED: Insulin DETEMIR 100 UNIT/ML X5UNITS SQ SCH (21:00)
[2020-01-27] MEDS ORDERED: Insulin LISPRO 300 UNITS/3 ML VIAL SQ SCH (21:00)
[2020-01-27] MEDS: Gabapentin 300 MG CAPSULE PO SCH (21:03)
[2020-01-28] MEDS ORDERED: *HR* LORazepam 2 MG/ML VIAL IVP ONE (02:23)
[2020-01-28] MEDS ORDERED: *HR* LORazepam 0.5 MG TABLET PO ONE (04:28)
[2020-01-28] MEDS: *HR* Heparin 5,000 UNIT/ML VIAL SQ SCH ×3 (04:43→22:48)
[2020-01-28 07:40] LABS: Calcium 9.7 mg/dL (8.6-10.3); Potassium 4.5 mEq/L (3.5-5.1)
[2020-01-28] MEDS: Insulin LISPRO 300 UNITS/3 ML VIAL SQ SCH ×3 (07:43→17:27)
[2020-01-28] MEDS: Aspirin Enteric Coated 81 MG Tablet PO SCH (07:44)
[2020-01-28] MEDS: Gabapentin 300 MG CAPSULE PO SCH (07:44)
[2020-01-28] MEDS: carvediloL 6.25 MG TABLET PO SCH ×2 (07:44→17:35)
[2020-01-28] MEDS ORDERED: Furosemide 40 MG/4 ML VIAL IVP ONE (17:36)
[2020-01-29] MEDS: *HR* Heparin 5,000 UNIT/ML VIAL SQ SCH ×3 (06:00→21:29)
[2020-01-29] MEDS: Insulin LISPRO 300 UNITS/3 ML VIAL SQ SCH ×3 (08:00→17:20)
[2020-01-29] MEDS: carvediloL 6.25 MG TABLET PO SCH ×2 (10:10→17:13)
[2020-01-29] MEDS: Aspirin Enteric Coated 81 MG Tablet PO SCH (10:10)
[2020-01-29 12:40] LABS: Calcium 9.4 mg/dL (8.6-10.3); Potassium 3.9 mEq/L (3.5-5.1)
[2020-01-29] MEDS ORDERED: Furosemide 40 MG/4 ML VIAL IVP ONE (15:43)
[2020-01-29] MEDS: *HR* Acetylcysteine 20% 600 MG/3 ML ORAL SYRINGE PO SCH (21:28)
[2020-01-30] MEDS: *HR* Heparin 5,000 UNIT/ML VIAL SQ SCH ×3 (06:13→22:20)
[2020-01-30] MEDS ORDERED: Furosemide 40 MG/4 ML VIAL IVP SCH (09:00)
[2020-01-30] MEDS: Aspirin Enteric Coated 81 MG Tablet PO SCH (09:04)
[2020-01-30] MEDS: Insulin LISPRO 300 UNITS/3 ML VIAL SQ SCH ×3 (09:04→18:18)
[2020-01-30] MEDS: carvediloL 6.25 MG TABLET PO SCH ×2 (09:16→18:18)
[2020-01-30] MEDS: *HR* Acetylcysteine 20% 600 MG/3 ML ORAL SYRINGE PO SCH ×2 (10:31→22:27)
[2020-01-30 12:17] LABS: Calcium 9.6 mg/dL (8.6-10.3); Potassium 3.6 mEq/L (3.5-5.1)
[2020-01-31 01:06] LABS: Calcium 9.4 mg/dL (8.6-10.3); Potassium 3.6 mEq/L (3.5-5.1)
[2020-01-31] MEDS: *HR* Heparin 5,000 UNIT/ML VIAL SQ SCH ×3 (05:07→20:03)
[2020-01-31] MEDS ORDERED: Furosemide 40 MG TABLET PO SCH (09:00)
[2020-01-31] MEDS: Insulin LISPRO 300 UNITS/3 ML VIAL SQ SCH ×3 (09:41→18:06)
[2020-01-31] MEDS: Aspirin Enteric Coated 81 MG Tablet PO SCH (09:41)
[2020-01-31] MEDS: carvediloL 6.25 MG TABLET PO SCH ×2 (09:41→18:01)
[2020-01-31] MEDS: *HR* Acetylcysteine 20% 600 MG/3 ML ORAL SYRINGE PO SCH ×2 (09:53→20:04)
[2020-01-31] MEDS ORDERED: Furosemide 20 MG TABLET PO ONE (10:30)
[2020-02-01] MEDS: *HR* Heparin 5,000 UNIT/ML VIAL SQ SCH ×3 (05:15→21:24)
[2020-02-01] MEDS: Insulin LISPRO 300 UNITS/3 ML VIAL SQ SCH ×3 (07:37→17:12)
[2020-02-01] MEDS ORDERED: 0.9 % Sodium Chloride 1,000 ML IVC SCH (08:00)
[2020-02-01 08:30] LABS: Calcium 9.8 mg/dL (8.6-10.3); Potassium 3.2 mEq/L (3.5-5.1)
[2020-02-01] MEDS: carvediloL 6.25 MG TABLET PO SCH ×2 (09:01→17:12)
[2020-02-01] MEDS: *HR* Acetylcysteine 20% 600 MG/3 ML ORAL SYRINGE PO SCH ×2 (09:01→21:24)
[2020-02-01] MEDS: Aspirin Enteric Coated 81 MG Tablet PO SCH (09:01)
[2020-02-01] MEDS ORDERED: Nitroglycerin 1,000 MCG/10 ML VIAL IV ONE (10:27)
[2020-02-01] MEDS ORDERED: *HR* Heparin 10,000 UNIT/10 ML VIAL ONE (10:27)
[2020-02-01] MEDS ORDERED: 0.9 % Sodium Chloride 1,000 ML ONE (10:27)
[2020-02-01] MEDS ORDERED: Heparin 1,000 UNITS/500 mL 500 ML ONE (10:27)
[2020-02-01] MEDS ORDERED: ISOVUE-370 200 ML INFUS..BTL ONE (10:27)
[2020-02-01 11:59] LABS: Basophils # 0.1 K/mcL (0.0-0.2); Eosinophils # 0.2 K/mcL (0.0-0.6); Eosinophils % 2.9 %; Hematocrit 46.2 % (35.3-44.9); Hemoglobin 15.2 g/dL (11.5-15.4); Immature Granulocytes % 0.3 % (0-4); Lymphocytes # 2.6 K/mcL (0.6-4.6); Lymphocytes % 32.2 %; Mean Corpuscular HGB Conc 32.9 g/dL (31.6-35.5); Mean Corpuscular Volume 100.2 fL (83.0-100.0); Mean Platelet Volume 12.3 fL (9.4-12.4); Monocytes # 0.9 K/mcL (0.0-1.3); Monocytes % 11.4 %; Neutrophils # 4.2 K/mcL (1.6-8.9); Platelet Count 261 K/mcL (140-400); Red Blood Count 4.61 M/mcL (3.82-4.97); Red Cell Distribution Width 14.4 % (11.5-14.5); Segmented Neutrophils % 52.2 %
[2020-02-01] MEDS ORDERED: *HR* Midazolam HCl 2 MG/2 ML VIAL ONE (12:25)
[2020-02-01] MEDS ORDERED: *HR* FentaNYL (PF) 100 MCG/2 ML VIAL ONE (12:25)
[2020-02-01] MEDS ORDERED: Tirofiban 12.5 MG/250ML 12.5 MG/250 ML BAG ONE (12:58)
[2020-02-01] MEDS ORDERED: Tirofiban 12.5 MG/250ML 12.5 MG/250 ML BAG IVC SCH (13:30)
[2020-02-02] MEDS: *HR* Heparin 5,000 UNIT/ML VIAL SQ SCH ×2 (07:39→13:38)
[2020-02-02] MEDS: *HR* Acetylcysteine 20% 600 MG/3 ML ORAL SYRINGE PO SCH (08:23)
[2020-02-02] MEDS: Insulin LISPRO 300 UNITS/3 ML VIAL SQ SCH ×2 (08:23→11:59)
[2020-02-02] MEDS: Aspirin Enteric Coated 81 MG Tablet PO SCH (08:23)
[2020-02-02] MEDS: carvediloL 6.25 MG TABLET PO SCH (08:23)
[2020-02-02 08:32] LABS: Calcium 9.7 mg/dL (8.6-10.3); Potassium 4.3 mEq/L (3.5-5.1)
[2020-02-02 11:16] LABS: Basophils # 0.1 K/mcL (0.0-0.2); Basophils % 0.8 %; Eosinophils # 0.1 K/mcL (0.0-0.6); Eosinophils % 1.2 %; Hematocrit 44.1 % (35.3-44.9); Hemoglobin 14.1 g/dL (11.5-15.4); Immature Granulocytes % 0.3 % (0-4); Lymphocytes # 1.8 K/mcL (0.6-4.6); Lymphocytes % 24.4 %; Mean Corpuscular Hemoglobin 31.6 pg (28.0-33.3); Mean Corpuscular Volume 98.9 fL (83.0-100.0); Mean Platelet Volume 12.2 fL (9.4-12.4); Monocytes # 0.7 K/mcL (0.0-1.3); Monocytes % 8.7 %; Neutrophils # 4.8 K/mcL (1.6-8.9); Platelet Count 252 K/mcL (140-400); Red Blood Count 4.46 M/mcL (3.82-4.97); Red Cell Distribution Width 14.2 % (11.5-14.5); Segmented Neutrophils % 64.6 %; White Blood Count 7.4 K/mcL (4.3-11.1)
[2020-02-02] MEDS ORDERED: Furosemide 40 MG TABLET PO SCH (11:45)
[2020-02-02 13:16] VITALS: BP 131/84
== END 2020-02-02 14:20 | disposition home or self-care (01) | DRG 981 ==
LOC: 2NENU 16:45 → EMEROOARM 16:45 → SUATTDRO 21:22 → 2NENU 22:17 → 2ANU 01-30 17:13
PROVIDERS: ADMIT Internal Medicine; ATTEND Internal Medicine

== ENCOUNTER 2020-02-08 08:13 | Inpatient (IN) ==
[2020-02-08 09:01] LABS: Basophils # 0.1 K/mcL (0.0-0.2); Basophils % 0.5 %; Eosinophils % 0.1 %; Hematocrit 43.9 % (35.3-44.9); Hemoglobin 14.3 g/dL (11.5-15.4); Immature Granulocytes % 0.5 % (0-4); Lymphocytes # 1.5 K/mcL (0.6-4.6); Mean Corpuscular HGB Conc 32.6 g/dL (31.6-35.5); Mean Corpuscular Volume 98.2 fL (83.0-100.0); Mean Platelet Volume 11.7 fL (9.4-12.4); Monocytes # 0.9 K/mcL (0.0-1.3); Monocytes % 6.6 %; Neutrophils # 11.2 K/mcL (1.6-8.9); Platelet Count 272 K/mcL (140-400); Red Blood Count 4.47 M/mcL (3.82-4.97); Red Cell Distribution Width 13.8 % (11.5-14.5); Segmented Neutrophils % 81.3 %; White Blood Count 13.8 K/mcL (4.3-11.1)
[2020-02-08 09:07] LABS: INR 1.1; Prothrombin Time 12.4 Seconds (9.4-12.1)
[2020-02-08 09:14] LABS: Bilirubin,Urine Negative (Negative); Blood,Urine Negative (Negative); Clarity,Urine Clear (Clear); Color,Urine Yellow (Yellow); Glucose,Urine (UA) Normal (Normal); Hyaline Casts,Urine Few per lpf (None Seen); Ketones,Urine Negative (Negative); Leukocyte Esterase,Urine Moderate (Negative); Mucus,Urine Few per lpf (None-Few); Nitrite,Urine Negative (Negative); PH,Urine 5.5 pH Units (5.0-8.0); Protein,Urine Trace mg/dL (Neg-Trace); Renal Epithelial Cells,Urine Few per hpf (None-Few); Specific Gravity,Urine 1.014 (1.010-1.025); Squamous Epithelial Cell,Urine Few per hpf (None-Few); Transitional Epi Cells,Urine Few per hpf (None-Few); Urobilinogen,Urine Normal (Normal)
[2020-02-08 09:15] LABS: Alanine Aminotransferase 18 Units/L (7-52); Albumin 3.8 g/dL (3.5-5.7); Albumin/Globulin Ratio 0.7 (1.1-2.2); Alkaline Phosphatase 81 Units/L (34-104); Aspartate Amino Transferase 41 Units/L (13-39); BUN/Creatinine Ratio 15 (6-26); Bilirubin,Direct 0.2 mg/dL (0.0-0.2); Bilirubin,Indirect 0.6 mg/dL (0.0-1.0); Bilirubin,Total 0.8 mg/dL (0.3-1.0); Blood Urea Nitrogen 32 mg/dL (8-23); Calcium 9.6 mg/dL (8.6-10.3); Carbon Dioxide 22 mEq/L (23-29); Chloride 94 mEq/L (98-107); Ethanol < 10 mg/dL (Less than 10); Globulin 5.4 g/dL (2.4-3.5); Glucose 185 mg/dL (70-105); Osmolality,Calculated 282 (280-300); Potassium 4.3 mEq/L (3.5-5.1); Sodium 130 mEq/L (136-145); Total Protein 9.2 g/dL (6.4-8.9); eGFR For African Americans 28 (> 60); eGFR For Non-African Americans 23 (> 60)
[2020-02-08 09:19] LABS: Amphetamine Screen,Urine Negative ng/mL (Cutoff=1000); Barbiturate Screen,Urine Negative ng/mL (Cutoff=200); Benzodiazepines Screen,Urine Negative ng/mL (Cutoff=200); Cannabinoid Screen,Urine Negative ng/mL (Cutoff = 50); Cocaine Screen,Urine Negative ng/mL (Cutoff= 300); Opiate Screen,Urine Negative ng/mL (Cutoff=300); Phencyclidine Screen,Urine Negative ng/mL (Cutoff=25)
[2020-02-08] MEDS ORDERED: *HR* Promethazine 25 MG/ML VIAL IVP PRN (11:43)
[2020-02-08] MEDS ORDERED: 0.9 % Sodium Chloride 500 ML IV ONE (12:13)
[2020-02-08] MEDS ORDERED: *HR* Heparin 5,000 UNIT/ML VIAL IVP PRN ×2 (12:41)
[2020-02-08] MEDS ORDERED: *HR* Heparin 5,000 UNIT/ML VIAL IVP ONE (12:41)
[2020-02-08] MEDS ORDERED: Dextrose Gel 15 GM/37.5 ML TUBE PO PRN ×2 (12:43)
[2020-02-08] MEDS ORDERED: *HR* Dextrose 50 % in Water (Vial) 50 ML VIAL IVP PRN (12:43)
[2020-02-08] MEDS ORDERED: D5% in Water 1,000 ML IVC PRN (12:43)
[2020-02-08 13:49] LABS: Hematocrit 39.9 % (35.3-44.9); Hemoglobin 13.4 g/dL (11.5-15.4); Mean Corpuscular HGB Conc 33.6 g/dL (31.6-35.5); Mean Corpuscular Volume 98.3 fL (83.0-100.0); Mean Platelet Volume 11.8 fL (9.4-12.4); Platelet Count 229 K/mcL (140-400); Red Blood Count 4.06 M/mcL (3.82-4.97); Red Cell Distribution Width 13.7 % (11.5-14.5); White Blood Count 17.4 K/mcL (4.3-11.1)
[2020-02-08] MEDS: Heparin 25,000 UNIT/250 ML D5W 25,000 UNIT/250 ML IV.SOLN IVC SCH (13:57)
[2020-02-08] MEDS: Insulin LISPRO 300 UNITS/3 ML VIAL SQ SCH ×3 (13:59→20:38)
[2020-02-08] MEDS: Furosemide 40 MG/4 ML VIAL IVP SCH (14:01)
[2020-02-08] MEDS: carvediloL 6.25 MG TABLET PO SCH ×2 (14:06→15:31)
[2020-02-08 14:55] LABS: VBG HCO3 23 mEq/L (21-27); VBG PCO2 32 mmHg (41-51); VBG PH 7.47 pH Units (7.32-7.42); VBG PO2 219 mmHg (25-50)
[2020-02-08] MEDS: Aspirin 81 MG TAB.CHEW PO SCH (15:41)
[2020-02-08] MEDS ORDERED: Acetaminophen 325 MG TABLET PO ONE (23:52)
[2020-02-09 03:01] LABS: Hematocrit 39.5 % (35.3-44.9); Hemoglobin 13.1 g/dL (11.5-15.4); Mean Corpuscular HGB Conc 33.2 g/dL (31.6-35.5); Mean Corpuscular Hemoglobin 31.8 pg (28.0-33.3); Mean Corpuscular Volume 95.9 fL (83.0-100.0); Mean Platelet Volume 11.9 fL (9.4-12.4); Platelet Count 231 K/mcL (140-400); Red Blood Count 4.12 M/mcL (3.82-4.97); Red Cell Distribution Width 13.6 % (11.5-14.5); White Blood Count 18.6 K/mcL (4.3-11.1)
[2020-02-09 03:23] LABS: Calcium 8.6 mg/dL (8.6-10.3); Potassium 3.3 mEq/L (3.5-5.1)
[2020-02-09] MEDS: Vancomycin Oral Soln 125 MG/2.5 ML UDC PO SCH ×5 (05:30→20:57)
[2020-02-09] MEDS ORDERED: INSULIN DEGLUDEC 5 UNIT SQ SCH (09:00)
[2020-02-09] MEDS ORDERED: Potassium Chloride Elixir 20 MEQ/15 ML UDC PO ONE (09:06)
[2020-02-09] MEDS: Furosemide 40 MG/4 ML VIAL IVP SCH (09:15)
[2020-02-09] MEDS ORDERED: Furosemide 40 MG TABLET PO SCH (09:22)
[2020-02-09] MEDS: carvediloL 6.25 MG TABLET PO SCH ×2 (09:31→16:35)
[2020-02-09] MEDS: Aspirin 81 MG TAB.CHEW PO SCH (09:31)
[2020-02-09] MEDS: Gabapentin 300 MG CAPSULE PO SCH ×2 (09:32→20:56)
[2020-02-09] MEDS: Insulin LISPRO 300 UNITS/3 ML VIAL SQ SCH ×4 (09:35→20:47)
[2020-02-09] MEDS ORDERED: 0.9 % Sodium Chloride 1,000 ML IVC SCH (14:30)
[2020-02-09] MEDS: Heparin 25,000 UNIT/250 ML D5W 25,000 UNIT/250 ML IV.SOLN IVC SCH (16:36)
[2020-02-09] MEDS: Piperacillin/Tazobactam 3.375 GM in 0.9 % Sodium Chloride Mini Bag 100 ML IVPB SCH (16:38)
[2020-02-10] MEDS: Piperacillin/Tazobactam 3.375 GM in 0.9 % Sodium Chloride Mini Bag 100 ML IVPB SCH ×4 (00:08→23:45)
[2020-02-10 04:53] LABS: Basophils # 0.1 K/mcL (0.0-0.2); Basophils % 0.4 %; Eosinophils # 0.1 K/mcL (0.0-0.6); Eosinophils % 0.5 %; Hematocrit 37.7 % (35.3-44.9); Hemoglobin 12.3 g/dL (11.5-15.4); Immature Granulocytes % 0.3 % (0-4); Lymphocytes # 2.8 K/mcL (0.6-4.6); Lymphocytes % 21.8 %; Mean Corpuscular HGB Conc 32.6 g/dL (31.6-35.5); Mean Corpuscular Hemoglobin 31.5 pg (28.0-33.3); Mean Corpuscular Volume 96.7 fL (83.0-100.0); Mean Platelet Volume 11.8 fL (9.4-12.4); Monocytes # 1.1 K/mcL (0.0-1.3); Monocytes % 8.9 %; Neutrophils # 8.6 K/mcL (1.6-8.9); Platelet Count 224 K/mcL (140-400); Red Cell Distribution Width 13.7 % (11.5-14.5); Segmented Neutrophils % 68.1 %; White Blood Count 12.6 K/mcL (4.3-11.1)
[2020-02-10 05:14] LABS: Magnesium 2.4 mg/dL (1.6-2.6); Phosphorous 2.9 mg/dL (2.7-4.5)
[2020-02-10 05:15] LABS: Calcium 8.8 mg/dL (8.6-10.3); Potassium 2.9 mEq/L (3.5-5.1)
[2020-02-10] MEDS ORDERED: Potassium Chloride 40 MEQ, Lidocaine 1% 2 ML in 0.9 % Sodium Chloride 500 ML IVPB ONE (06:24)
[2020-02-10] MEDS: Insulin LISPRO 300 UNITS/3 ML VIAL SQ SCH ×4 (08:55→20:57)
[2020-02-10] MEDS: Aspirin 81 MG TAB.CHEW PO SCH (08:56)
[2020-02-10] MEDS: Vancomycin Oral Soln 125 MG/2.5 ML UDC PO SCH ×4 (08:56→21:05)
[2020-02-10] MEDS: carvediloL 6.25 MG TABLET PO SCH ×2 (08:56→16:23)
[2020-02-10] MEDS: Gabapentin 300 MG CAPSULE PO SCH ×2 (08:56→21:04)
[2020-02-10] MEDS: *HR* Heparin 5,000 UNIT/ML VIAL SQ SCH (16:24)
[2020-02-11 03:54] LABS: Basophils # 0.1 K/mcL (0.0-0.2); Basophils % 0.8 %; Eosinophils # 0.1 K/mcL (0.0-0.6); Eosinophils % 1.4 %; Hematocrit 37.3 % (35.3-44.9); Hemoglobin 12.1 g/dL (11.5-15.4); Immature Granulocytes % 0.4 % (0-4); Lymphocytes # 2.7 K/mcL (0.6-4.6); Lymphocytes % 35.1 %; Mean Corpuscular HGB Conc 32.4 g/dL (31.6-35.5); Mean Corpuscular Hemoglobin 31.7 pg (28.0-33.3); Mean Corpuscular Volume 97.6 fL (83.0-100.0); Mean Platelet Volume 11.6 fL (9.4-12.4); Monocytes # 1.1 K/mcL (0.0-1.3); Monocytes % 13.9 %; Neutrophils # 3.7 K/mcL (1.6-8.9); Platelet Count 239 K/mcL (140-400); Red Blood Count 3.82 M/mcL (3.82-4.97); Red Cell Distribution Width 13.7 % (11.5-14.5); Segmented Neutrophils % 48.4 %; White Blood Count 7.6 K/mcL (4.3-11.1)
[2020-02-11 04:21] LABS: Calcium 8.9 mg/dL (8.6-10.3); Magnesium 1.8 mg/dL (1.6-2.6); Potassium 3.7 mEq/L (3.5-5.1)
[2020-02-11] MEDS: *HR* Heparin 5,000 UNIT/ML VIAL SQ SCH (05:55)
[2020-02-11] MEDS: Insulin LISPRO 300 UNITS/3 ML VIAL SQ SCH ×2 (08:14→12:26)
[2020-02-11] MEDS: Piperacillin/Tazobactam 3.375 GM in 0.9 % Sodium Chloride Mini Bag 100 ML IVPB SCH (09:17)
[2020-02-11] MEDS: Aspirin 81 MG TAB.CHEW PO SCH (09:17)
[2020-02-11] MEDS: Gabapentin 300 MG CAPSULE PO SCH (09:17)
[2020-02-11] MEDS: carvediloL 6.25 MG TABLET PO SCH (09:17)
[2020-02-11] MEDS: Vancomycin Oral Soln 125 MG/2.5 ML UDC PO SCH ×2 (09:18→12:25)
[2020-02-11 11:39] VITALS: BP 142/92
== END 2020-02-11 17:29 | DRG 698 ==
LOC: EMEROOARM 08:13 → 3BNU 08:13 → SUATTDRO 12:12 → 3BNU 13:02 → SUATTDRO 02-09 12:56 → 2ANU 02-09 17:43
PROVIDERS: ADMIT Internal Medicine; ATTEND Internal Medicine